=== PATIENT | female | born 1940 | race Caucasian/White ===

== ENCOUNTER → 2024-03-09 08:06 | Outpatient (REF) | payer MEDICARE, OTHER, SELFPAY | LOC: RCS 08:06 | PROVIDERS: ATTENDING PHYSICIAN Internal Medicine Cardiovascular Disease; FAMILY PHYSICIAN Family Medicine | DX: I48.0 Paroxysmal atrial fibrillation (principal); I34.0 Nonrheumatic mitral (valve) insufficiency | CPT/HCPCS: 93306 ==

== ENCOUNTER 2024-05-04 15:42 | Inpatient (IN) | payer MEDICARE, OTHER, SELFPAY ==
[2024-05-04] VITALS (8 sets, daily range): BP systolic 115–155; BP diastolic 70–105
[2024-05-04 10:50] LABS: % Basophils 0.3 % (0-2); % Eosinophils 1.3 % (0-6); % Immature Granulocytes 0.3 % (0-0.5); % Lymphocytes 9.7 % (20.5-51.1); % Neutrophils 75.4 % (42.2-75.2); Absolute Eosinophils 0.1 10^3/uL (0-0.7); Absolute Lymphocytes 0.9 10^3/uL (1.2-3.4); Absolute Monocytes 1.1 10^3/uL (0.1-0.6); Absolute Neutrophils 6.6 10^3/uL (1.4-6.5); Hematocrit 32.9 % (37.0-47.0); Hemoglobin 11.4 g/dL (12.0-16.0); Mean Corp Hgb Conc. 34.7 g/dL (33.0-37.0); Mean Corpuscular Hgb 29.4 pg (27.0-31.0); Mean Corpuscular Volume 84.8 fL (81.0-99.0); Mean Platelet Volume 9.1 fL (7.4-10.4); Nucleated Red Blood Cells % 0 %; Platelet Count 237 10^3/uL (130-400); Red Blood Cell Count 3.88 10^6/uL (4.20-5.40); Red Cell Dist. Width 13.7 % (11.5-14.5); White Blood Cell Count 8.8 10^3/uL (4.8-10.8)
[2024-05-04 10:59] LABS: ALT (SGPT) 14 U/L (0-35); AST (SGOT) 25 U/L (14-36); Albumin 4.1 g/dl (3.5-5.0); Alkaline Phosphatase 71 U/L (38-126); Blood Urea Nitrogen 21 mg/dl (7-17); Calcium 9.3 mg/dl (8.4-10.2); Carbon Dioxide 27 mmol/L (22-30); Chloride 98 mmol/L (98-107); Glucose 104 mg/dl (70-99); Potassium 4.2 mmol/L (3.5-5.1); Sodium 132 mmol/L (135-145); Total Bilirubin 0.5 mg/dl (0.2-1.3); Total Protein 6.8 g/dl (6.3-8.2)
[2024-05-04] MEDS: ANCEF 10 IV (12:22)
[2024-05-04] MEDS: MORPHINE SULFATE 2 MG IV (13:18)
--- NOTE | 2024-05-04 14:27 | ED.GENMED ---
History of Present Illness
General
Chief Complaint: Skin Problem
Source: patient
Exam Limitations: none
Time Seen by Provider: 05/04/24 10:16
Nursing documentation reviewed up to this point in time: agreed with
History of Present Illness
History of Present Illness:
83-year-old female past medical history of A-fib currently on Eliquis, hypertension hyperlipidemia presenting to the emergency department today with concerns of worsening swelling and to the right lower extremity mainly on the right foot going to
the posterior ankle and to the lower tib-fib region. Has had subjective fevers denies any nausea vomiting. She has been on antibiotics for the past 3 days without improvement.
Past History
Past History
ED Past Medical History: Arrthythmia, HTN, Hypercholesterolemia, Hypothyroidism, Other (Cellulitis RLE (2006)) and Other (Osteoarthritis)
ED Past Surgical History: Cholecystectomy, Orthopedic (Right wrist surgery) and Other (Laser ablation of right greater saphenous vein)
Social History
Tobacco: Former smoker
Alcohol: None
Drug: None
Personal:
Living: with family
Family History
Family History: Hypertension and CAD; Negative Diabetes
Review of Systems
Review of Systems
Allergies reviewed?: Yes
All Other Systems: ROS reviewed and negative except as documented in HPI and ROS
Phy Exam
Physical Exam
Physical Exam:
GENERAL: Alert , in no apparent distress
EYE: pupils equal and reactive
NECK: Supple, no significant adenopathy.
ENT: o/p clr, mmm.
CARDIAC: Regular rate and rhythm .
LUNGS: Clear breath sounds bilaterally, no acute respiratory distress, no wheezes/rales/rhonchi
ABDOMEN: Soft, without focal tenderness, no r/g, no cvat
NEUROLOGICAL: Alert and oriented, no focal neuro deficits
SKIN: Warm and dry, skin intact.
MUSCULOSKELETAL: Swelling redness discomfort throughout the right ankle foot region extending into the martinez region as well. Is able to range at the ankle does have some discomfort specifically to your Achilles region as well., well perfused.
PSYCH: Normal and appropriate interaction.
Course
Orders/Labs/Results
Orders:
Orders
05/04/24 10:37
CMP [Comprehensive Metabolic Panel] Urgent
Complete Blood Count/With Diff Urgent
05/04/24 11:02
CeFAZolin 2 GRAM [Ancef] 2 grams in 10 ml IV NOW
05/04/24 11:23
Lactic Acid Urgent
Blood Culture Urgent
MOLLY Source: Blood/Venous
Specimen Description:
05/04/24 11:25
Ankle, Right 3 view CR [CR Ankle - Right Min 3 Views *] Urgent
Comment:
Reason For Exam: ankle pain swelling
CR Foot - Right Min 3 Views Urgent
Comment:
Reason For Exam: swelling pain infection right ankle area
05/04/24 12:19
Sterile Water [Sterile Water For Injection] 10 ml .ROUTE .STK-MED ONE
05/04/24 13:14
Morphine Sulfate 2 mg IV NOW STA
Abnormal Lab Results
05/04/24
10:37
RBC 3.88 L 10^6/uL
(4.20-5.40)
Hgb 11.4 L g/dL
(12.0-16.0)
Hct 32.9 L %
(37.0-47.0)
Absolute Neuts (auto) 6.6 H 10^3/uL
(1.4-6.5)
Absolute Lymphs (auto) 0.9 L 10^3/uL
(1.2-3.4)
Absolute Monos (auto) 1.1 H 10^3/uL
(0.1-0.6)
Neutrophils % 75.4 H %
(42.2-75.2)
Lymphocytes % 9.7 L %
(20.5-51.1)
Monocytes % 13.0 H %
(1.7-9.3)
Sodium 132 L mmol/L
(135-145)
BUN 21 H mg/dl
(7-17)
Glucose 104 H mg/dl
(70-99)
05/04/24 10:37
05/04/24 10:37
Vital Signs
Initial and Last Documented VS:
Initial Vital Signs
Temp Pulse Resp
98.6 F 79 20
05/04/24 09:40 05/04/24 09:40 05/04/24 09:40
Last Documented Vital Signs
Temp Pulse Resp BP Pulse Ox
98.6 F 85 20 155/73 95
05/04/24 09:40 05/04/24 13:17 05/04/24 13:17 05/04/24 13:00 05/04/24 11:01
MDM/Problems Addressed
MDM/Problems Addressed:
83-year-old female presenting to the emergency department today with concerns of right lower extremity swelling redness warmth mainly starting as seemingly superficial redness and swelling started on antibiotics 3 days ago has not had any
improvement and has had subjective fevers and chills. Here vital signs are normal patient in no distress but does have redness swelling and tenderness throughout the ankle foot and distal martinez region. Patient was started on IV antibiotics and
otherwise will need to be admitted due to failed outpatient management.
*Critical Care Note
Total Time (30-74mins, 75-104mins- exclusive of procedures): Not Applicable
ED Attending Note
-
Portions of this chart may have been created with voice recognition software.� Occasional wrong word or��sound alike� substitutions may have occurred due to the inherent limitations of voice recognition software.
Discharge Plan
Departure
Patient Disposition: Admit
Date of Disposition: 05/04/24
Time of Disposition: 14:29
Admit to: Med/Surg
Admit to doctor: Leg cellulitis
Presentation/result/management discussed w/ accepting MD/DO: Hospitalist
Patient with high blood pressure during this ER visit?: No
Condition: Good
Covid-19: Not Applicable
Discharge Problem:
Cellulitis of leg
Prescriptions:
No Action
oxybutynin chloride 10 MG tablet extended release 24hr
10 mg PO DAILY@1700
levothyroxine 125 MCG tablet
125 mcg PO DAILY AT 0700
lovastatin 20 MG tablet
20 mg PO DAILY
PreserVision AREDS-2 1 EACH capsule
1 ea PO BID
multivitamin Tablet
1 tab PO DAILY
hydrocodone-acetaminophen 5-325 mg tablet
1 tab PO Q6H PRN (Reason: moderate-severe pain) Qty: 30 0RF
Rx Instructions:
1 tab for moderate pain, 2 if severe.
Dx total joint. Ongoing therapy.
mupirocin 2 % ointment
1 applic intranasal BID Qty: 1 0RF
prochlorperazine maleate [Compazine] 5 mg tablet
5 mg PO TID PRN (Reason: nausea and vomiting) Qty: 20 0RF
diltiazem HCl 180 MG capsule,extended release 24hr
360 mg PO QPM
Rx Instructions:
take 2 of the 180 mg capsules daily
acetaminophen [Tylenol] 325 mg tablet
650 mg PO Q4H PRN (Reason: mild pain) Qty: 30 0RF
Rx Instructions:
DO NOT exceed >4000 mg daily while on [place].
1 [place] tab = 325 mg of Tylenol.
docusate sodium [Colace] 100 mg capsule
100 mg PO BID Qty: 30 0RF
senna 8.6 mg capsule
17.2 mg PO BID Qty: 30 0RF
penicillin V potassium 500 MG tablet
500 mg PO DAILY Qty: 1 0RF
Rx Instructions:
Resume day after discharge.
alum-mag hydroxide-simeth [Mag-Al Plus] 200-200-20 mg/5 mL Suspension
30 ml PO Q4HPRN PRN (Reason: indigestion) Qty: 355 0RF
losartan 100 MG tablet
100 mg PO DAILY Qty: 1 0RF
Rx Instructions:
HOLD if systolic blood pressure <130 while on [place].
Eliquis 5 MG tablet
5 mg PO BID Qty: 60 0RF
Rx Instructions:
1/2 tab (=2.5 mg) twice daily starting evening of discharge.
May resume 5 mg twice daily on 07/28/22 AM.
Referrals:
Viktoriya Underwood MD [Family Provider] -
Interventions
Interventions:
*Risk Screen - Suicide Last Done: 05/04/24 09:40
*General Assessment Last Done: 05/04/24 09:40
*Neglect/Abuse Screening Last Done: 05/04/24 09:40
ED- Fall Risk Assessment Last Done: 05/04/24 10:26
*ED COVID-19 Vaccine History Last Done: 05/04/24 10:26
ED-Skin Assessment Last Done: 05/04/24 10:26
Discharge Date and Time
Print Language: AFGHAN
--- NOTE | 2024-05-04 14:43 | HPS.HSE ---
Family Physician
-
Family Physician: Viktoriya Underwood
Chief Complaint
-
RLE ankle redness
History of Present Illness
83 y/o F hx of Afib on Eliquis, HTN, HLD, Hypothyroidism, prior recurrent cellulitis to legs on prophylactic penicillin presents to ER for worsening RLE ankle/foot swelling. Patient reports recurrent cellulitis history managed by PCP. She presented
a few days ago to PCP for cellulitis and was prescribed Cefadroxil which patient states usually helps with her infections. She notes that in the interim period since PCP visit, her swelling has worsened and is redness is tracking up the martinez. She
also reports limited ROM of R ankle related to swelling. No fevers or other complaints.
Medical History
Past Medical History
Past Medical History: Reports Other (Afib on Eliquis, HTN, HLD, Hypothyroidism, prior recurrent cellulitis to legs on prophylactic penicillin)
Past Surgical History: Reports Other (Cholecystectomy, Orthopedic (Right wrist surgery) and Other (Laser ablation of right greater saphenous vein))
Social History
Tobacco: Former Smoker
Alcohol: None
Drug: None
Personal:
Living: With Family
Family History
Family History: Not pertinent
Allergies / Home Medications
Allergies reflects when Allergies were last updated in [facility].
Home Medications with original date entered in [facility]
Allergy/Medication List:
Allergies
Allergy/AdvReac Type Severity Reaction Status Date / Time
adhesive Allergy skin tears Verified 05/04/24 09:44
cefadroxil Allergy hives, Verified 05/04/24 09:44
rash,
itching
Sulfa (Sulfonamide Allergy Rash Verified 05/04/24 09:44
Antibiotics)
trimethoprim Allergy Unknown Verified 05/04/24 09:44
vancomycin [Vancomycin] Allergy Hives Verified 05/04/24 09:44
Home Medications
levothyroxine 125 mcg tablet 125 mcg PO DAILY AT 0700 Thyroid 03/27/22
vit C 250 mg-vit E 90 mg-zinc 40 mg-copper 1 [id number] capsule (PreserVision AREDS-2) 1 ea PO BID Supplement 03/27/22
penicillin V potassium 500 mg tablet 500 mg PO DAILY prophylaxis for cellulitis #1 tab 07/25/22
apixaban 5 mg tablet (Eliquis) 5 mg PO BID #60 tabs 07/26/22
losartan 100 mg tablet 100 mg PO DAILY #1 tab 07/26/22
acetaminophen 650 mg tablet,extended release 650 mg PO DAILY 05/04/24
cefadroxil 500 mg capsule 500 mg PO BID 05/04/24
diltiazem HCl 360 mg capsule,extended release 24 hr 360 mg PO QPM 05/04/24
lovastatin 20 mg tablet 20 mg PO DAILY 05/04/24
therapeutic multivitamin 1 tab PO DAILY 05/04/24
Review of Systems
-
A 12 point ROS was completed and negative except as noted: Yes
Physical Exam
Vital Signs
Vital Signs
Temp Pulse Resp BP Pulse Ox
98.6 F 85 20 155/73 95
05/04/24 09:40 05/04/24 13:17 05/04/24 13:17 05/04/24 13:00 05/04/24 11:01
Physical Exam
General: Well Developed and Well Nourished
HEENT: NormoCephalic and Anicteric
Respiratory: No Wheezes or Rales
Cardiac: S1/S2 and Regular Rhythm
GI: Soft and Non Tender
Musculoskeletal: Edema, Right Lower Extremity and Other
Skin: Other (RLE cellulitis, warmth from mid foot to R martinez, ankle swelling)
Neuro: AO x 3
Hematologic/Lymphatic: No Lymphadenopathy
Psych: Calm
Laboratory Results
-
05/04/24 10:37
05/04/24 10:37
Laboratory Results
Lactic Acid 1.0 mmol/L (0.7-2.0) 05/04/24 11:23
Total Bilirubin 0.5 mg/dl (0.2-1.3) 05/04/24 10:37
AST 25 U/L (14-36) 05/04/24 10:37
ALT 14 U/L (0-35) 05/04/24 10:37
Alkaline Phosphatase 71 U/L (38-126) 05/04/24 10:37
Data Reviewed
-
Diagnostic Radiology: Report Reviewed by me
Lab Data: Labs Reviewed by me
Impression/Plan
-
Assessment:
RLE cellulitis, recurrent
- on prophylactic PCN and recently prescribed Cefadroxil for acute cellulitis episode; no improvement
- XRay without acute pathology
- will start IV Abx - Ancef and Vanco. Check MRSA swab.
- consult ID for recs
- elevated RLE at all times
Afib , parox
Essential HTN
- continue Eliquis/Cardizem
- continue ARB
HLD - continue statin
Hypothyroidism - continue replacement
Hyponatremia
- monitor BMP
DVT ppx: Eliquis
Code: Full
--- NOTE | 2024-05-04 16:56 | PTCARENOTE ---
Pt arrived to unit from ED on stretcher. Pt ambulated safely from stretcher to bed with the use of her cane. Pt AAOx3, oriented to room, able to make needs known. Call delacruz and belongings within reach.
[2024-05-04] MEDS: CARDIZEM CD 360 MG PO (17:25)
[2024-05-04] MEDS: TYLENOL 650 MG PO ×2 (17:27→21:57)
--- NOTE | 2024-05-04 17:54 | PHA.VAN.IN ---
Assessment
- Assessment
Renal Function: Appears similar to baseline
Concomitant Antimicrobials: ANCEF
- Previous Dosing Experience
Previous Regimen: NONE
AUC Dosing Plan
- Dosing Variables
Dosing Weight (kg): 64.7
Dosing CrCl (ml/min): 40
Vd coefficient (L/kg): 0.7
- Empiric Dosing
Initial / Loading Dose: 1500MG
Maintenance Regimen: 750MG IV Q24H
Estimated AUC (mcg*h/mL): 449
Estimated Peak (mcg*h/mL): 27.9
Estimated Trough (mcg/ml): 11.7
Estimated Half Life (H): 18.4
Pharmacokinetics Vancomycin I
- -
Patient Age: 83
Patient Sex: Female
Vancomycin Day #: 1
Indication: Skin And Soft Tissue (RLE CELLULITIS)
Requesting Provider: CORBY
Pertinent Antimicrobial Allergies:
Allergies
Sulfa (Sulfonamide Antibiotics) Allergy (Verified 05/04/24 09:44)
Rash
Remote, in childhood
cefadroxil Allergy (Verified 05/04/24 09:44)
hives, rash, itching
1 month ago
trimethoprim Allergy (Verified 05/04/24 09:44)
Unknown
vancomycin [Vancomycin] Allergy (Verified 05/04/24 09:44)
Hives
10 y/a
Height / Weight:
Height 5 ft 5 in
Actual Weight 64.7 kg
Pertinent Past Medical History: FAILED OUTPT TX WITH CEFADROXIL
- Vital Signs / Lab Results
Temp Pulse Resp BP Pulse Ox
101.4 F H 81 17 146/94 95
05/04/24 17:09 05/04/24 17:25 05/04/24 17:09 05/04/24 17:25 05/04/24 17:09
Lab Results - Hematology
05/04/24
10:37
WBC 8.8
Lab Results - Chemistry
05/04/24
10:37
BUN 21 H
Creatinine 1.0
Albumin 4.1
05/04/24
11:23
Lactic Acid 1.0
[2024-05-04] MEDS: ANCEF 5 IV (20:11)
[2024-05-04] MEDS: ELIQUIS 5 MG PO (20:11)
[2024-05-05] MEDS: ANCEF 5 IV ×3 (03:54→20:54)
[2024-05-05] MEDS: SYNTHROID 125 MCG PO (05:43)
[2024-05-05 06:11] LABS: Hematocrit 31.7 % (37.0-47.0); Hemoglobin 10.8 g/dL (12.0-16.0); Mean Corp Hgb Conc. 34.1 g/dL (33.0-37.0); Mean Corpuscular Hgb 29.4 pg (27.0-31.0); Mean Corpuscular Volume 86.4 fL (81.0-99.0); Mean Platelet Volume 9.6 fL (7.4-10.4); Platelet Count 244 10^3/uL (130-400); Red Blood Cell Count 3.67 10^6/uL (4.20-5.40); Red Cell Dist. Width 13.5 % (11.5-14.5); White Blood Cell Count 6.6 10^3/uL (4.8-10.8)
[2024-05-05 06:29] LABS: Blood Urea Nitrogen 16 mg/dl (7-17); Calcium 9.3 mg/dl (8.4-10.2); Carbon Dioxide 31 mmol/L (22-30); Chloride 99 mmol/L (98-107); Estimated Creatinine Clearance 44 ml/min; Glucose 98 mg/dl (70-99); Potassium 4.2 mmol/L (3.5-5.1); Sodium 134 mmol/L (135-145); eGFR > 60.00
[2024-05-05 07:15] VITALS: BP 136/91
[2024-05-05] MEDS: ELIQUIS 5 MG PO ×2 (08:29→20:54)
[2024-05-05] MEDS: LIPITOR 10 MG PO (08:29)
[2024-05-05] MEDS: COZAAR 100 MG PO (08:30)
[2024-05-05] MEDS: THERAGRAN 1 TABLET PO (08:30)
[2024-05-05] MEDS: TYLENOL 650 MG PO ×2 (08:35→14:58)
[2024-05-05 09:20] VITALS: BP 113/76; PULSE 95; O2SAT 94
--- NOTE | 2024-05-05 11:37 | W.PN.HOSP.TC ---
Today's Communication/Plan
-
await ID recs
Assessment / Plan
Assessment / Plan
Assessment:
RLE cellulitis, recurrent
- on prophylactic PCN and recently prescribed Cefadroxil for acute cellulitis episode; no improvement
- X-ray without acute pathology
- continue IV Ancef. Check MRSA swab.
- consulted ID for co-management recs
- elevate RLE at all times
Afib , parox
Essential HTN
- continue Eliquis/Cardizem
- continue ARB
HLD - continue statin
Hypothyroidism - continue replacement
Hyponatremia
- monitor BMP
DVT ppx: Eliquis
Code: Full
Anticipated Discharge: > 48 hours
Subjective/Interval History
-
Date of Service: May 05, 2024
reports RLE ankle swelling improving, able to ambulate more easily
Objective Data
-
Labs:
Laboratory Results
05/05/24
05:15
WBC 6.6
Hgb 10.8 L
Hct 31.7 L
Plt Count 244
Sodium 134 L
Potassium 4.2
Chloride 99
Carbon Dioxide 31 H
BUN 16
Creatinine 0.9
Glucose 98
Calcium 9.3
Vital Signs:
Vital Signs
Temp Pulse Resp BP Pulse Ox
98.8 F 97 17 136/91 95
05/05/24 07:15 05/05/24 08:30 05/05/24 07:15 05/05/24 08:30 05/05/24 09:53
I&O
05/04/24 05/05/24 05/06/24
06:59 06:59 06:59
Intake Total 960 / 960
Balance 960 / 960
Physical Exam
-
General: No Apparent Distress
HEENT: Normocephalic and Atraumatic
Respiratory: Negative Wheezes
Cardiac: Regular Rhythm and S1/S2
GI: Soft
Skin: Other ((RLE cellulitis, warmth from mid foot to R martinez, ankle swelling))
Neuro: AO x 3
Hematologic / Lymphatic: No Lymphadenopathy
Psych: Calm
Data Reviewed
-
Total Time Spent with Patient (in minutes): 45
Labs: Labs Reviewed by me
--- NOTE | 2024-05-05 12:08 | CM ---
wastewater manager reviewed patient's chart and met with patient and patient lives alone in a one story home, with 13 steps to enter from the front of home and 12 steps from the garage, patient is independent with adl's and uses a cane with ambulation,
rn field case manager reviewed patient progress with physial therapy and recommendation is for skilled placement, patient is refusing skilled placement but is agreeable to visiting nurses, and has selected [facility], [facility] liaison notified.
Pharmacy: [facility]
PCP: Dr. Underwood
Plan: Home with [facility].
--- NOTE | 2024-05-05 13:54 | CON.ID ---
Consultation
-
Date/Time Consultation Requested: May 04, 2024 1622
Date/Time Consultation Performed: May 05, 2024 1400
Requesting Provider: Dr. Cintia Boyd
Performing Provider: Dr. Ethel Rodriguez
Reason for Consultation: Cellulitis
Chief Complaint / Past History
Chief Complaint
Right leg swelling and redness
History of Present Illness
83-year-old female with history of atrial fibrillation, hypertension, hypothyroidism, right leg cellulitis and has been on prophylactic penicillin since 2006 who developed redness on right Achilles on . Her PCP prescribed cefadroxil but
without improvement this time with spreading erythema up the leg. She also had subjective fevers and chills. She therefore came to the ER yesterday. Temperature was one 101.4. She received vancomycin in the ER. She was started on cefazolin. She
reports right leg cellulitis every 7 years, but this one is 2 years from previous. Redness always starts on the Achilles then spread up the leg. Today, leg is not as warm as previous. Also chills has resolved.
Past History
Additional Past Medical History:
HTN
hypothyroidism
Afib
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
Venous insufficiency
cholecystectomy
R GSV laser ablation
Left LE vein ablation
Right wrist surgery
Allergy History:
adhesive Allergy (Verified 05/04/24 09:44)
skin tears
cefadroxil Allergy (Verified 05/04/24 09:44)
hives, rash, itching
Sulfa (Sulfonamide Antibiotics) Allergy (Verified 05/04/24 09:44)
Rash
trimethoprim Allergy (Verified 05/04/24 09:44)
Unknown
vancomycin [Vancomycin] Allergy (Verified 05/04/24 09:44)
Hives
Medications Reviewed: Yes
Current Antibiotics:
Cefazolin
Social History
Tobacco: Former Smoker
Alcohol: None
Drug: None
Personal:
Family History
Family History: Not Pertinent
Review of Systems
Review of Systems
General: Fever and Chills
Cardiovascular: Negative Chest Pain or Dyspnea
Respiratory: Negative Dyspnea or Cough
Genital / Urological: Negative Dysuria or Flank Pain
Neurological: Negative Headache or Dizziness
All systems: All other systems were reviewed and were negative
Vital Signs
Temp Pulse Resp BP Pulse Ox
98.8 F 97 17 136/91 95
05/05/24 07:15 05/05/24 08:30 05/05/24 07:15 05/05/24 08:30 05/05/24 09:53
Selected Entries
05/04/24
17:09
Temp 101.4 F H
Physical Exam
Physical Exam
Constitutional: No Acute Distress
Eyes: No Conjunctival Hemorrhage and Sclera Anicteric
Cardiovascular: Regular Rate and S1/S2
Pulmonary: Clear
Gastrointestinal: Soft, Non Tender, Non Distended and Normal Bowel Sounds
Genito-Urinary: Negative CVA Tenderness
Extremities: Edema (right posterior ankle with erythema extending to lateral malleolus and up the martinez, 1+ edema, + warmth) and Venous Insufficiency (bilateral LE)
Neurological: AO x 3
Lab / Diagnostic Study Results
05/05/24 05:15
05/05/24 05:15
Abs Immat Gran (auto) 0.0 10^3/uL (0-0.05) 05/04/24 10:37
Absolute Neuts (auto) 6.6 10^3/uL (1.4-6.5) H 05/04/24 10:37
Absolute Lymphs (auto) 0.9 10^3/uL (1.2-3.4) L 05/04/24 10:37
Absolute Monos (auto) 1.1 10^3/uL (0.1-0.6) H 05/04/24 10:37
Absolute Basos (auto) 0.0 10^3/uL (0-0.2) 05/04/24 10:37
Immature Gran % 0.3 % (0-0.5) 05/04/24 10:37
Neutrophils % 75.4 % (42.2-75.2) H 05/04/24 10:37
Lymphocytes % 9.7 % (20.5-51.1) L 05/04/24 10:37
Monocytes % 13.0 % (1.7-9.3) H 05/04/24 10:37
Eosinophils % 1.3 % (0-6) 05/04/24 10:37
Basophils % 0.3 % (0-2) 05/04/24 10:37
Lactic Acid 1.0 mmol/L (0.7-2.0) 05/04/24 11:23
Microbiology Results
Micro:
05/04/24 11:23 Blood Culture - Preliminary
Blood/Venous No Growth in 24 hours- Final report to follow
05/04/24 20:30 MRSA Screen - Pending
Nose
Assessment / Plan
# Recurrent RLE cellulitis
# Fever
# Venous insufficiency
- Agree with continuing cefazolin
- follow temps.
- Will follow clinically
--- NOTE | 2024-05-05 14:31 | VNURNOTE ---
Home Health Liaison met with patient at bedside to discuss [facility] nurse visits, schedule and homebound status. Patient is agreeable and understands that visits at home will be 1-3 x per week to assess and teach medical management. Explained to
patient that caveat is if patient goes home with IV antibiotics, [facility] would not be able to see her due to insurance restrictions. Patient verbalized understanding. LAURA Aquino aware as well. [facility] brochure provided with contact information. Patient is
aware that [facility] will contact them for start of care within a few days after discharge from . [facility] referral completed in [facility]. Will continue to monitor hospital course and DC plan for antibiotics.
[2024-05-05 15:30] VITALS: BP 129/76
[2024-05-05] MEDS: CARDIZEM CD 360 MG PO (17:43)
[2024-05-05 23:08] VITALS: BP 125/78
[2024-05-06] MEDS: SYNTHROID 125 MCG PO (04:59)
[2024-05-06] MEDS: ANCEF 5 IV ×3 (04:59→21:04)
[2024-05-06 05:31] LABS: Hematocrit 30.5 % (37.0-47.0); Hemoglobin 10.6 g/dL (12.0-16.0); Mean Corp Hgb Conc. 34.8 g/dL (33.0-37.0); Mean Corpuscular Hgb 29.6 pg (27.0-31.0); Mean Corpuscular Volume 85.2 fL (81.0-99.0); Platelet Count 259 10^3/uL (130-400); Red Blood Cell Count 3.58 10^6/uL (4.20-5.40); Red Cell Dist. Width 13.2 % (11.5-14.5); White Blood Cell Count 7.1 10^3/uL (4.8-10.8)
[2024-05-06 05:58] LABS: Blood Urea Nitrogen 18 mg/dl (7-17); Calcium 9.1 mg/dl (8.4-10.2); Carbon Dioxide 27 mmol/L (22-30); Chloride 99 mmol/L (98-107); Estimated Creatinine Clearance 50 ml/min; Glucose 102 mg/dl (70-99); Sodium 131 mmol/L (135-145); eGFR > 60.00
[2024-05-06] MEDS: COZAAR 100 MG PO (08:47)
[2024-05-06] MEDS: ELIQUIS 5 MG PO ×2 (08:47→21:05)
[2024-05-06] MEDS: LIPITOR 10 MG PO (08:48)
[2024-05-06] MEDS: THERAGRAN 1 TABLET PO (08:48)
--- NOTE | 2024-05-06 10:43 | PN.CDI ---
CDI
- -
CDI:
Physician Documentation Request
Admit Date: 05/04/24 15:42
Dear Doctor Deb,
Please review the following and provide your response in the progress notes.
Clinical Indicators:
Pt admitted with RLE cellulitis Documented per ED, 'Has had subjective fevers denies any nausea vomiting. She has been on antibiotics for the past 3 days without improvement.... has had subjective fevers and chills...'
On admission Tmax 101.4,HR 112,RR 24 /pt is on Ancef and Vanco
Please clarify which of the following most accurately describes the status of the patient's infection:
Sepsis-POA
- Systemic manifestations of infection, with 2 or more SIRS criteria which include:
- Fever >100.4 degrees F or hypothermia < 96.8 degrees F
- Leukocytosis - WBC > 12,000 or leukopenia - WBC < 4,000 or > 10% bands
- Tachycardia > 90 beats per minute
- Tachypnea - RR > 20 breaths per minute or PaCO2 , 32mmHg
Source: Merck Manual 2013
Right Lower extremity cellulitis only Without Systemic Illness
Other
Use of terms such as suspected, likely, concern for, or probable (associated with a specific diagnosis that is being evaluated, monitored, or treated as if it exists) are acceptable and can be coded in the inpatient setting, when documented at the
time of discharge.
Thank you,
Yen Garnica RN
CDI Specialist
[place] [facility]
Please use your independent medical judgment in providing your response.
[2024-05-06] MEDS: TYLENOL 650 MG PO ×2 (11:41→21:11)
--- NOTE | 2024-05-06 13:25 | W.PN.HOSP.TC ---
Today's Communication/Plan
-
continue IV Ancef and elevate LE
Assessment / Plan
Assessment / Plan
Assessment:
Sepsis POA
RLE cellulitis, recurrent
- on prophylactic PCN and recently prescribed Cefadroxil for acute cellulitis episode; no improvement
- X-ray without acute pathology
- continue IV Ancef. MRSA negative.
- ID following
- elevate RLE at all times
Afib , parox
Essential HTN
- continue Eliquis/Cardizem
- continue ARB
HLD - continue statin
Hypothyroidism - continue replacement
Hyponatremia
- monitor BMP
DVT ppx: Eliquis
Code: Full
Anticipated Discharge: 24 - 48 hours
Subjective/Interval History
-
Date of Service: May 06, 2024
reports improving mobility, and slightly improving swelling
Objective Data
-
Labs:
Laboratory Results
05/06/24
05:15
WBC 7.1
Hgb 10.6 L
Hct 30.5 L
Plt Count 259
Sodium 131 L
Potassium 4.0
Chloride 99
Carbon Dioxide 27
BUN 18 H
Creatinine 0.8
Glucose 102 H
Calcium 9.1
Vital Signs:
Vital Signs
Temp Pulse Resp BP Pulse Ox
98.1 F 85 16 125/78 95
05/06/24 03:33 05/06/24 08:47 05/05/24 23:08 05/06/24 08:47 05/06/24 09:58
I&O
05/05/24 05/06/24 05/07/24
06:59 06:59 06:59
Intake Total 960 / 960 1050 / 1050
Balance 960 / 960 1050 / 1050
Physical Exam
-
General: No Apparent Distress
HEENT: Normocephalic and Atraumatic
Respiratory: Negative Wheezes or Rales
Cardiac: Regular Rhythm and S1/S2
GI: Soft
Genito-urinary: No Costovertebral Tender
Musculoskeletal: Other (RLE cellulitis, warmth from mid foot to R martinez, ankle swelling)
Neuro: AO x 3
Hematologic / Lymphatic: No Lymphadenopathy
Psych: Calm
Data Reviewed
-
Total Time Spent with Patient (in minutes): 42
Labs: Labs Reviewed by me
--- NOTE | 2024-05-06 14:34 | W.PN.ID1 ---
Date of Service
Date of Service: May 06, 2024
Today's Communication
Continue cefazolin.
Assessment / Plan
# Recurrent RLE cellulitis, slowing improving
# Fever - resolved
# Venous insufficiency
- Continue cefazolin (d3)
- At time of discharge, transition to cephalexin 500mg po qid through 05/13/2024
- Recommend compression stockings.
#Additional Past Medical History:
HTN
hypothyroidism
Afib
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
Venous insufficiency
cholecystectomy
R GSV laser ablation
Left LE vein ablation
Right wrist surgery
Chief Complaint
-: Cellulitis
Subjective / Review of Systems
Ankle pain stable.
Vital Signs / Physical Exam
Vital Signs
Vital Signs
Temp Pulse Resp BP Pulse Ox
98.1 F 85 16 125/78 95
05/06/24 03:33 05/06/24 08:47 05/05/24 23:08 05/06/24 08:47 05/06/24 09:58
Physical Exam
Constitutional: No Acute Distress
Extremities: Edema (RLE edema continues to decrease) and Erythema (R Achilles erythema decreased, R lateral ankle erythema darker in color, + warmth)
Neurological: AO x 3
Objective Data
Lab Data
Lab Results
05/06/24 05:15
05/06/24 05:15
Estimated Creat Clear 50 ml/min 05/06/24 05:15
Lactic Acid 1.0 mmol/L (0.7-2.0) 05/04/24 11:23
Total Bilirubin 0.5 mg/dl (0.2-1.3) 05/04/24 10:37
AST 25 U/L (14-36) 05/04/24 10:37
ALT 14 U/L (0-35) 05/04/24 10:37
Alkaline Phosphatase 71 U/L (38-126) 05/04/24 10:37
Most recent labs reviewed.
Micro Results:
05/04/24 11:23 Blood Culture - Preliminary
Blood/Venous No Growth in 48 hours- Final report to follow
05/04/24 20:30 MRSA Screen - Final
Nose No Methicillin Resistant Staphylococcus aureus isolated.
[2024-05-06 16:20] VITALS: BP 110/67
[2024-05-06] MEDS: CARDIZEM CD 360 MG PO (17:01)
[2024-05-06 23:23] VITALS: BP 124/71
[2024-05-07] MEDS: ANCEF 5 IV ×2 (04:13→12:17)
[2024-05-07] MEDS: TYLENOL 650 MG PO ×2 (04:19→10:01)
[2024-05-07] MEDS: SYNTHROID 125 MCG PO (05:42)
[2024-05-07 06:21] LABS: Hematocrit 27.7 % (37.0-47.0); Hemoglobin 9.6 g/dL (12.0-16.0); Mean Corp Hgb Conc. 34.7 g/dL (33.0-37.0); Mean Corpuscular Hgb 28.9 pg (27.0-31.0); Mean Corpuscular Volume 83.4 fL (81.0-99.0); Mean Platelet Volume 9.3 fL (7.4-10.4); Platelet Count 283 10^3/uL (130-400); Red Blood Cell Count 3.32 10^6/uL (4.20-5.40); Red Cell Dist. Width 13.4 % (11.5-14.5); White Blood Cell Count 7.2 10^3/uL (4.8-10.8)
[2024-05-07 06:46] LABS: Blood Urea Nitrogen 23 mg/dl (7-17); Calcium 9.3 mg/dl (8.4-10.2); Carbon Dioxide 27 mmol/L (22-30); Chloride 99 mmol/L (98-107); Estimated Creatinine Clearance 44 ml/min; Glucose 96 mg/dl (70-99); Potassium 3.9 mmol/L (3.5-5.1); Sodium 132 mmol/L (135-145); eGFR > 60.00
[2024-05-07 07:00] VITALS: BP 128/72
--- NOTE | 2024-05-07 09:55 | W.PN.ID1 ---
Date of Service
Date of Service: May 07, 2024
Today's Communication
Transition cefazolin to cephalexin 500mg po qid through 05/17/2024
Assessment / Plan
# Recurrent RLE cellulitis, improving
# Fever - resolved
# Venous insufficiency
- Continue cefazolin (d3)
- Transition cefazolin to cephalexin 500mg po qid through 05/17/2024
- Recommend compression stockings.
#Additional Past Medical History:
HTN
hypothyroidism
Afib
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
Venous insufficiency
cholecystectomy
R GSV laser ablation
Left LE vein ablation
Right wrist surgery
Chief Complaint
-: Cellulitis
Subjective / Review of Systems
Feeling better.
Vital Signs / Physical Exam
Vital Signs
Vital Signs
Temp Pulse Resp BP Pulse Ox
98.4 F 70 16 128/72 97
05/07/24 07:00 05/07/24 07:00 05/07/24 07:00 05/07/24 07:00 05/07/24 07:00
Physical Exam
Constitutional: No Acute Distress and Comfortable
Extremities: Edema (RLE resolving edema) and Erythema (R ankle erythema decreasing)
Neurological: AO x 3
Objective Data
Lab Data
Lab Results
05/07/24 05:04
05/07/24 05:04
Estimated Creat Clear 44 ml/min 05/07/24 05:04
Lactic Acid 1.0 mmol/L (0.7-2.0) 05/04/24 11:23
Total Bilirubin 0.5 mg/dl (0.2-1.3) 05/04/24 10:37
AST 25 U/L (14-36) 07/29/24 10:37
ALT 14 U/L (0-35) 05/04/24 10:37
Alkaline Phosphatase 71 U/L (38-126) 05/04/24 10:37
Most recent labs reviewed.
Micro Results:
05/04/24 11:23 Blood Culture - Preliminary
Blood/Venous No Growth in 48 hours- Final report to follow
05/04/24 20:30 MRSA Screen - Final
Nose No Methicillin Resistant Staphylococcus aureus isolated.
Care Review
Plan reviewed with: Physician (Dr. Cintia Boyd)
[2024-05-07] MEDS: COZAAR 100 MG PO (09:57)
[2024-05-07] MEDS: LIPITOR 10 MG PO (09:58)
[2024-05-07] MEDS: THERAGRAN 1 TABLET PO (09:58)
[2024-05-07] MEDS: ELIQUIS 5 MG PO (09:58)
--- NOTE | 2024-05-07 13:51 | W.PN.HOSP.TC ---
Today's Communication/Plan
-
dc to home
Assessment / Plan
Assessment / Plan
Assessment:
Sepsis POA
RLE cellulitis, recurrent
- on prophylactic PCN and recently prescribed Cefadroxil for acute cellulitis episode; no improvement
- X-ray without acute pathology
- improved with IV Ancef. MRSA negative. dc on cephalexin 500mg po qid through 05/17/2024. appreciate ID recs.
- elevate RLE at all times
Afib , parox
Essential HTN
- continue Eliquis/Cardizem
- continue ARB
HLD - continue statin
Hypothyroidism - continue replacement
Hyponatremia
- monitor BMP
DVT ppx: Eliquis
Code: Full
More than 30 minutes spent in discharge including
Final examination of the patient
Summarizing hospital stay
Instructions for continuing care to all relevant caregivers
Preparation of discharge records, prescriptions, and referral forms
Total time spent (in minutes): 41
Anticipated Discharge: Today
Subjective/Interval History
-
Date of Service: May 07, 2024
denies any new complaints at present
Objective Data
-
Labs:
Laboratory Results
05/07/24
05:04
WBC 7.2
Hgb 9.6 L
Hct 27.7 L
Plt Count 283
Sodium 132 L
Potassium 3.9
Chloride 99
Carbon Dioxide 27
BUN 23 H
Creatinine 0.9
Glucose 96
Calcium 9.3
Vital Signs:
Vital Signs
Temp Pulse Resp BP Pulse Ox
98.4 F 70 16 128/72 97
05/07/24 07:00 05/07/24 07:00 05/07/24 07:00 05/07/24 07:00 08/01/24 07:00
I&O
05/06/24 05/07/24 05/08/24
06:59 06:59 06:59
Intake Total 1049 / 0 1859
Balance 1050 / 1049
Physical Exam
-
General: No Apparent Distress
HEENT: Normocephalic and Atraumatic
Respiratory: Negative Wheezes
Cardiac: Regular Rhythm and S1/S2
GI: Soft
Genito-urinary: No Costovertebral Tender
Musculoskeletal: No Edema
Neuro: AO x 3
Psych: Calm
Data Reviewed
-
Total Time Spent with Patient (in minutes): 41
Labs: Labs Reviewed by me
--- NOTE | 2024-05-07 13:56 | W.DS.TRANS ---
DC Summary - [employer]
-
Discharge Instructions:
Discharge Diagnosis/Procedures RLE Cellulitis
Diet Low Cholesterol
Activity As tolerated
Instructions:
Stand-Alone Forms:
Changes to Home Medications: No
Discharge Medications:
DC Medications w/original date entered in [employer]
levothyroxine 125 mcg tablet 125 mcg PO DAILY AT 0700 Thyroid 03/27/22
vit C 250 mg-vit E 90 mg-zinc 40 mg-copper 1 [id number]-[id number] capsule (PreserVision AREDS-2) 1 ea PO BID Supplement 03/27/22
penicillin V potassium 500 mg tablet 500 mg PO DAILY prophylaxis for cellulitis #1 tab 07/25/22
apixaban 5 mg tablet (Eliquis) 5 mg PO BID #60 tabs 07/26/22
losartan 100 mg tablet 100 mg PO DAILY #1 tab 07/26/22
acetaminophen 650 mg tablet,extended release 650 mg PO DAILY Pain 05/04/24
diltiazem HCl 360 mg capsule,extended release 24 hr 360 mg PO QPM Blood Pressure 05/04/24
lovastatin 20 mg tablet 20 mg PO DAILY High Cholesterol 05/04/24
therapeutic multivitamin 1 tab PO DAILY Supplement 05/04/24
cephalexin 500 mg capsule 500 mg PO QID #40 caps 05/07/24
Home Medication Changes
Pending Results: No
Total time spent discharging patient (in min): 41
--- NOTE | 2024-05-07 15:32 | CM ---
met rey patient at bedside.patient with rle cellullitis,abx changed to po,stable for dc home with [facility].signed imm letter.family trnsported patient home.
== END 2024-05-07 14:45 | disposition home health service (06) | DRG 872 ==
LOC: 3 WEST ACU 15:42
PROVIDERS: Physician Assistant; ADMITTING PHYSICIAN Internal Medicine; EMERGENCY PHYSICIAN Emergency Medicine; FAMILY PHYSICIAN Family Medicine; OTHER PHYSICIAN Internal Medicine Infectious Disease
DX: A41.9 Sepsis, unspecified organism (principal); L03.115 Cellulitis of right lower limb; E87.1 Hypo-osmolality and hyponatremia; I10 Essential (primary) hypertension; E03.9 Hypothyroidism, unspecified; E78.00 Pure hypercholesterolemia, unspecified; I87.2 Venous insufficiency (chronic) (peripheral); M19.90 Unspecified osteoarthritis, unspecified site; I48.0 Paroxysmal atrial fibrillation; Z79.01 Long term (current) use of anticoagulants; Z82.49 Family history of ischemic heart disease and other diseases of the circulatory system; Z79.890 Hormone replacement therapy; Z88.1 Allergy status to other antibiotic agents; Z88.2 Allergy status to sulfonamides; Z88.8 Allergy status to other drugs, medicaments and biological substances; Z91.048 Other nonmedicinal substance allergy status; Z87.891 Personal history of nicotine dependence
CPT/HCPCS: 73610; 73630; 80048; 80053; 83605; 85025; 85027; 87040; 87070; 96374; 96375; 97110; 97116; 97162; 97166; 99285

== ENCOUNTER 2024-05-19 17:23 | Inpatient (IN) | payer MEDICARE, OTHER, SELFPAY ==
[2024-05-19 16:00] VITALS: BP 154/86
--- NOTE | 2024-05-19 16:46 | ED.SKININJ ---
HPI-Injury
General
Chief Complaint: Skin Problem
Source: patient
Exam Limitations: none
Time Seen by Provider: 05/19/24 16:22
Nursing documentation reviewed up to this point in time: agreed with
History of Present Illness-Injury
Is this injury a work related problem?: No
Is pt an associate of [facility]?: No
Initial Injury comments:
Patient to ED with complaint of continue pain redness and swelling to right foot and ankle. She was inpatient here 05/04-05/07 for cellulitis to RLE. Tx with IV ancef and then discharged home on keflex. Last dose of keflex was 3 days ago. She
reports continued fevers at home. Sent for outpatient CT today by PCP. Results: 'irregular ovoid rim-enhancing fluid collection within the posterior ankle soft tissues just anterosuperior to the retrocalcaneal bursa and deep to the Achilles
tendon, measuring approximately 3.7 x 1.4 x 4.7 cm.' Sent to ED for admission. On eliquis. Last dose this AM
Past History
Past History
ED Past Medical History: Arrthythmia, HTN, Hypercholesterolemia, Hypothyroidism, Other (Cellulitis RLE (2005)) and Other (Osteoarthritis)
ED Past Surgical History: Cholecystectomy, Orthopedic (Right wrist surgery) and Other (Laser ablation of right greater saphenous vein)
Social History
Tobacco: Former smoker
Alcohol: None
Drug: None
Personal:
Living: with family
Family History
Family History: Hypertension and CAD; Negative Diabetes
Review of Systems
Review of Systems
Allergies reviewed?: Yes
All Other Systems: ROS reviewed and negative except as documented in HPI and ROS
Constitutional: Reports no symptoms
EENT: Reports no symptoms
Respiratory: Reports no symptoms
Cardiac: Reports no symptoms
ABD/GI: Reports no symptoms
Musculoskeletal: Reports joint pain (right ankle paink)
Skin: Reports other (erythema, pain, swelling RLE)
Neurological: Reports no symptoms
Psychiatric: Reports no symptoms
Phy Exam
General Physical Exam
General Presentation: well appearing and moderate distress
General age: appears stated age
General Skin: warm and dry
General Habitus: normal
General Mental: alert
Musculoskeletal Exam
Musculoskeletal Exam: neuro vasc intact and other (right posterior ankle pain)
Skin Exam
Skin Exam: other (Pain redness swelling right lower extremity)
Psychiatric Exam
Psychiatric Exam: normal mood/affect
Course
Orders/Labs/Results
Orders:
Orders
05/19/24 Dinner
Regular
At Your Request: Full Participation
05/19/24 16:46
CeFAZolin 1 GRAM [Ancef] 1 gram in 5 ml IV NOW
05/19/24 16:53
ORTHOPEDIC CONSULT Urgent
Consulting Provider: Alexei Acharya
Was physician already notified: Yes
05/19/24 16:54
Morphine Sulfate 4 mg IV NOW STA
Ondansetron Injectable [Zofran] 4 mg IV NOW STA
05/19/24 16:55
0.9% Sodium Chloride 1000 ml [Nss] 1,000 ml IV BOLUS
05/19/24 16:59
Complete Blood Count/With Diff Urgent
Comprehensive Metabolic Panel Urgent
Lactic Acid Urgent
05/19/24 17:13
Admit/Transfer Patient As Directed
Co-Sign Provider:
Level of Care: Inpatient admission
Assign to:: Medical/Surgical
Physician / Group: lexi
Diagnosis: cellulitis with abscess
Reason for Hospitalization: cellulitis with abscess
Expected length of stay greater than two midnights?: Yes
ELOS- Estimated Length of Stay in days: 2
I certify the patient meets the requirements for IP care: Yes
Code Status As Directed
Resuscitation Status: Do not resuscitate
Reached after discussion with pt or family/Healthcare POA: Yes
DNR Bracelet Application ONCE
PRN Pain Medication Management As Directed
May give lesser potent ordered pain med per pt: Yes
preference::
Protocol:: Medication orders for pain may be administered in a
manner that supports deferring to patient preference
when the pt is:
- Requesting an ordered lesser potent pain medication.
Least to most potent pain medications are defined
as: acetaminophen < NSAID < tramadol < opioids
(morphine, oxycodone, hydromorphone).
- Requesting a lesser dose of the same medication IF
ORDERED.
- Requesting a less intrusive route of administration
if both routes are prescribed by the provider (PO <
IV).
05/19/24 18:19
Acetaminophen [Tylenol] 650 mg PO Q4HPRN PRN
HYDROmorphone [Dilaudid] 0.5 mg IV Q4HPRN PRN
05/19/24 18:19
Activity As Directed
Activity Level: As Tolerated
Pneumatic Compression Sleeves As Directed
Type: Knee high
Vital Signs As Directed
Frequency: Per unit guidelines
DX Deep Vein Thrombosis Video Routine
05/19/24 18:30
Artificial Tears (Pf) [Refresh Eye Drops (Pf)] 1 drops BOTH EYES Q6HPRN PRN
05/19/24 19:00
Diltiazem Extended Release [Cardizem Cd] 360 mg PO QPM
05/19/24 20:00
Vit C/Vit E/Lutein/Min/[place]-3 [Ocuvite Softgel] 1 cap PO BID
05/20/24 02:00
CeFAZolin 1 GRAM [Ancef] 1 gram in 5 ml IV Q8H
05/20/24 06:00
Complete Blood Count/With Diff IN AM
Comprehensive Metabolic Panel IN AM
Levothyroxine [Synthroid] 125 mcg PO DAILY @ 0600
05/20/24 08:00
Atorvastatin [Lipitor] 10 mg PO DAILY
Losartan [Cozaar] 100 mg PO DAILY
Multivitamin [Theragran] 1 tablet PO DAILY
Abnormal Lab Results
05/19/24
16:59
RBC 3.67 L 10^6/uL
(4.20-5.40)
Hgb 10.5 L g/dL
(12.0-16.0)
Hct 31.5 L %
(37.0-47.0)
Plt Count 440 H 10^3/uL
(130-400)
Absolute Neuts (auto) 7.3 H 10^3/uL
(1.4-6.5)
Absolute Monos (auto) 1.0 H 10^3/uL
(0.1-0.6)
Lymphocytes % 12.6 L %
(20.5-51.1)
Monocytes % 10.7 H %
(1.7-9.3)
Sodium 129 L mmol/L
(135-145)
Chloride 93 L mmol/L
(98-107)
BUN 21 H mg/dl
(7-17)
05/19/24 16:59
05/19/24 16:59
Vital Signs
Initial and Last Documented VS:
Initial Vital Signs
Temp Pulse Resp BP Pulse Ox
98.5 F 71 18 154/86 97
05/19/24 16:00 05/19/24 16:00 05/19/24 16:00 05/19/24 16:00 05/19/24 16:00
Last Documented Vital Signs
Temp Pulse Resp BP Pulse Ox
98.6 F 72 16 129/66 95
05/19/24 19:15 05/19/24 19:15 05/19/24 19:15 05/19/24 19:15 05/19/24 19:15
*Radiology
Radiology exam reviewed: radiology read reviewed
*Pulse Oximetry
Patient hypoxic: no
*Critical Care Note
Total Time (30-74mins, 75-104mins- exclusive of procedures): Not Applicable
Update Note
Update Note:
CT confirmation of abscess to right posterior ankle. Will admit to hospitalist service. Dr. Acharya notified of admission, will consult.
ED Attending Note
-
Portions of this chart may have been created with voice recognition software.� Occasional wrong word or��sound alike� substitutions may have occurred due to the inherent limitations of voice recognition software.
Discharge Plan
Departure
Patient Disposition: Admit
Date of Disposition: 05/19/24
Time of Disposition: 16:52
Presentation/result/management discussed w/ accepting MD/DO: Hospitalist
Patient with high blood pressure during this ER visit?: No
Condition: Fair
Covid-19: Not Applicable
Discharge Problem:
Cellulitis and abscess of right lower extremity
Interventions
Interventions:
*Risk Screen - Suicide Last Done: 05/19/24 18:07
*General Assessment Last Done: 05/19/24 18:07
*Neglect/Abuse Screening Last Done: 05/19/24 18:07
*ED COVID-19 Vaccine History Last Done: 05/19/24 18:07
*Nursing Disposition Last Done: 05/19/24 18:26
ED-Skin Assessment Last Done: 05/19/24 18:07
Discharge Date and Time
Discharge Date/Time: 05/19/24 18:26
[2024-05-19 17:09] LABS: % Basophils 0.5 % (0-2); % Eosinophils 0.8 % (0-6); % Immature Granulocytes 0.4 % (0-0.5); % Lymphocytes 12.6 % (20.5-51.1); % Monocytes 10.7 % (1.7-9.3); Absolute Basophils 0.1 10^3/uL (0-0.2); Absolute Eosinophils 0.1 10^3/uL (0-0.7); Absolute Lymphocytes 1.2 10^3/uL (1.2-3.4); Absolute Neutrophils 7.3 10^3/uL (1.4-6.5); Hematocrit 31.5 % (37.0-47.0); Hemoglobin 10.5 g/dL (12.0-16.0); Mean Corp Hgb Conc. 33.3 g/dL (33.0-37.0); Mean Corpuscular Hgb 28.6 pg (27.0-31.0); Mean Corpuscular Volume 85.8 fL (81.0-99.0); Mean Platelet Volume 8.3 fL (7.4-10.4); Nucleated Red Blood Cells % 0 %; Platelet Count 440 10^3/uL (130-400); Red Blood Cell Count 3.67 10^6/uL (4.20-5.40); Red Cell Dist. Width 13.7 % (11.5-14.5); White Blood Cell Count 9.7 10^3/uL (4.8-10.8)
--- NOTE | 2024-05-19 17:19 | HPS.HSE ---
Family Physician
-
Family Physician: Viktoriya Underwood
Chief Complaint
-
right foot pain
History of Present Illness
83-year-old female past medical history of paroxysmal atrial fibrillation on Eliquis, hypertension, hyperlipidemia, hypothyroidism, hyponatremia, recurrent cellulitis right lower extremity, presenting for pain, redness and swelling of right foot and
ankle that is not completely improved from her recent admission.
Patient was admitted here from 05/04 to 05/07 for right lower extremity cellulitis treated with Ancef with transition to Keflex. She finished Keflex 3 days ago with some improvement but continued to have fevers and chills at home. Then the pain and
swelling and redness started to increase again. She had outpatient CT scan by her primary care physician which showed abscess and was sent to the emergency room. She last took Eliquis this morning.
She drinks alcohol occasionally. She denies smoking.
Medical History
Past Medical History
Past Medical History: Reports Other ( paroxysmal atrial fibrillation on Eliquis, hypertension, hyperlipidemia, hypothyroidism, hyponatremia, recurrent cellulitis right lower extremity)
Past Surgical History: Reports Other (Cholecystectomy, Orthopedic (Right wrist surgery) and Other (Laser ablation of right greater saphenous vein))
Social History
Tobacco: Non-smoker
Alcohol: Occasional
Drug: None
Family History
Family History: Not pertinent
Allergies / Home Medications
Allergies reflects when Allergies were last updated in [employer].
Home Medications with original date entered in [employer]
Allergy/Medication List:
Allergies
Allergy/AdvReac Type Severity Reaction Status Date / Time
adhesive Allergy skin tears Verified 05/04/24 09:44
Sulfa (Sulfonamide Allergy Rash Verified 05/04/24 09:44
Antibiotics)
trimethoprim Allergy Unknown Verified 05/04/24 09:44
vancomycin [Vancomycin] Allergy Hives Verified 05/04/24 09:44
Home Medications
levothyroxine 125 mcg tablet 125 mcg PO DAILY Thyroid 03/27/22
vit C 250 mg-vit E 90 mg-zinc 40 mg-copper 1 bo-sibxgn-qwqhpv capsule (PreserVision AREDS-2) 1 ea PO BID Supplement 03/27/22
apixaban 5 mg tablet (Eliquis) 5 mg PO BID #60 tabs 07/26/22
losartan 100 mg tablet 100 mg PO DAILY #1 tab 07/26/22
acetaminophen 650 mg tablet,extended release 650 mg PO DAILY mild pain 05/04/24
diltiazem HCl 360 mg capsule,extended release 24 hr 360 mg PO QPM Blood Pressure 05/04/24
lovastatin 20 mg tablet 20 mg PO DAILY High Cholesterol 05/04/24
therapeutic multivitamin 1 tab PO DAILY Supplement 05/04/24
polyvinyl alcohol 1.4 % eye drops 1 drp BOTH EYES Q6HPRN PRN dry eyes 05/19/24
Review of Systems
-
History Source: Patient
A 12 point ROS was completed and negative except as noted: Yes
Constitutional: Reports No Symptoms
EENT: Reports No Symptoms
Respiratory: Reports No Symptoms
Cardiac: Reports No Symptoms
Abdomen/GI: Reports No Symptoms
: Reports No Symptoms
Musculoskeletal: Reports No Symptoms
Skin: Reports See HPI
Neurological: Reports No Symptoms
Endocrine: Reports No Symptoms
Hematologic/Lymphatic: Reports No Symptoms
Psych: Reports No Symptoms
Physical Exam
Vital Signs
Vital Signs
Temp Pulse Resp BP Pulse Ox
98.5 F 71 18 154/86 97
05/19/24 16:00 05/19/24 16:00 05/19/24 16:00 05/19/24 16:00 05/19/24 16:00
Physical Exam
General: Well Developed, Well Nourished and No Apparent Distress
HEENT: NormoCephalic, Moist mucous membranes and Atraumatic
Respiratory: Clear
Cardiac: S1/S2 and Regular Rhythm; No Murmur or Rub
GI: Soft, Non Tender, Non Distended and Normal Bowel Sounds; No Organomegaly
Rectal: Deferred by Provider
Musculoskeletal: No Clubbing, No Cyanosis and No Edema
Skin: Other (right lower extremity swelling, pain and erythema up to mid calf particularly over achilles region ); No Rash
Neuro: Nonfocal/grossly intact
Laboratory Results
-
05/19/24 16:59
Data Reviewed
-
Lab Data: Labs Reviewed by me
Old Records: Reviewed
Impression/Plan
-
IMPRESSION:
PLAN:
# Persistent right lower extremity cellulitis with abscess
-CT scan shows rim-enhancing fluid collection within the posterior ankle soft tissue anterior superior to the retrocalcaneal bursa and deep to the Achilles tendon measuring 3.7 x 1.4 x 4.7 cm
-continue cefazolin
-IV fluids given
-Ortho consulted for drainage
-ID consulted
-Hold Eliquis until drainage
-Tylenol, Dilaudid for pain
Paroxysmal atrial fibrillation
-Hold Eliquis
-Continue diltiazem
Essential hypertension
-Continue losartan
Hyperlipidemia
-Continue statin
Hypothyroidism
-Continue levothyroxine
Hyponatremia
-Labs pending
Chronic anemia
-Hemoglobin stable
DNR/DNI
DVT prophylaxis�SCDs
Regular diet
[2024-05-19 17:22] LABS: Lactic Acid 0.8 mmol/L (0.7-2.0)
[2024-05-19 17:30] LABS: ALT (SGPT) 18 U/L (0-35); AST (SGOT) 25 U/L (14-36); Albumin 4.1 g/dl (3.5-5.0); Alkaline Phosphatase 72 U/L (38-126); Blood Urea Nitrogen 21 mg/dl (7-17); Calcium 9.5 mg/dl (8.4-10.2); Carbon Dioxide 30 mmol/L (22-30); Chloride 93 mmol/L (98-107); Glucose 98 mg/dl (70-99); Potassium 4.3 mmol/L (3.5-5.1); Sodium 129 mmol/L (135-145); Total Bilirubin 0.4 mg/dl (0.2-1.3); Total Protein 7.1 g/dl (6.3-8.2)
[2024-05-19] MEDS: NSS 1000 IV (17:37)
[2024-05-19] MEDS: ZOFRAN 4 MG IV (17:39)
[2024-05-19] MEDS: MORPHINE SULFATE 4 MG IV (17:39)
[2024-05-19] MEDS: ANCEF 5 IV (17:39)
[2024-05-19 19:15] VITALS: BP 129/66; BMI 22.3
[2024-05-19 20:05] VITALS: BP 129/66; BMI 22.3
[2024-05-19] MEDS: CARDIZEM CD 360 MG PO (20:09)
[2024-05-19] MEDS: OCUVITE SOFTGEL 1 CAP PO (20:09)
[2024-05-19] MEDS: TYLENOL 650 MG PO (22:37)
[2024-05-19 23:05] VITALS: BP 90/50
--- NOTE | 2024-05-20 00:45 | PTCARENOTE ---
Casey texted house provider that pt's BP 90/50. Pt was asymptomatic and resting comfortably in bed. Provider advised to re-check BP an hour later. Repeat BP 117/56.
[2024-05-20 00:48] VITALS: BP 117/56
[2024-05-20] MEDS: ANCEF 5 IV ×2 (02:01→09:28)
[2024-05-20] MEDS: SYNTHROID 125 MCG PO (05:03)
[2024-05-20] MEDS: TYLENOL 650 MG PO ×3 (05:04→17:54)
[2024-05-20 07:00] VITALS: BP 128/65
[2024-05-20 08:31] LABS: % Basophils 0.8 % (0-2); % Eosinophils 2.5 % (0-6); % Immature Granulocytes 0.3 % (0-0.5); % Lymphocytes 13.8 % (20.5-51.1); % Monocytes 12.1 % (1.7-9.3); % Neutrophils 70.5 % (42.2-75.2); Absolute Basophils 0.1 10^3/uL (0-0.2); Absolute Eosinophils 0.2 10^3/uL (0-0.7); Absolute Lymphocytes 1.1 10^3/uL (1.2-3.4); Absolute Monocytes 0.9 10^3/uL (0.1-0.6); Absolute Neutrophils 5.4 10^3/uL (1.4-6.5); Hematocrit 27.3 % (37.0-47.0); Hemoglobin 9.2 g/dL (12.0-16.0); Mean Corp Hgb Conc. 33.7 g/dL (33.0-37.0); Mean Corpuscular Hgb 28.3 pg (27.0-31.0); Mean Platelet Volume 8.6 fL (7.4-10.4); Nucleated Red Blood Cells % 0 %; Platelet Count 411 10^3/uL (130-400); Red Blood Cell Count 3.25 10^6/uL (4.20-5.40); Red Cell Dist. Width 13.7 % (11.5-14.5); White Blood Cell Count 7.7 10^3/uL (4.8-10.8)
[2024-05-20 08:50] LABS: ALT (SGPT) 14 U/L (0-35); AST (SGOT) 23 U/L (14-36); Albumin 3.4 g/dl (3.5-5.0); Alkaline Phosphatase 62 U/L (38-126); Blood Urea Nitrogen 16 mg/dl (7-17); Calcium 9.3 mg/dl (8.4-10.2); Carbon Dioxide 29 mmol/L (22-30); Chloride 98 mmol/L (98-107); Estimated Creatinine Clearance 52 ml/min; Glucose 95 mg/dl (70-99); Potassium 4.8 mmol/L (3.5-5.1); Sodium 131 mmol/L (135-145); Total Bilirubin 0.3 mg/dl (0.2-1.3); Total Protein 6.2 g/dl (6.3-8.2); eGFR > 60.00
[2024-05-20 09:20] LABS: Total Iron Binding Capacity 189 ug/dl (265-497)
[2024-05-20 09:24] LABS: Iron 20 ug/dl (37-170); Percent Saturation 10 % (20-50)
[2024-05-20] MEDS: COZAAR 100 MG PO (09:26)
[2024-05-20] MEDS: OCUVITE SOFTGEL 1 CAP PO ×2 (09:26→21:04)
[2024-05-20] MEDS: LIPITOR 10 MG PO (09:26)
[2024-05-20] MEDS: THERAGRAN 1 TABLET PO (09:26)
[2024-05-20 11:30] LABS: Osmolality Serum 277 mOsm/kg (275-300)
[2024-05-20 11:54] LABS: Ferritin 96.7 ng/ml (11.1-264.0)
[2024-05-20 12:08] LABS: Vitamin B12 334 pg/ml (239-931)
--- NOTE | 2024-05-20 12:26 | PHA.VAN.IN ---
Assessment
- Assessment
Renal Function: Appears similar to baseline
Concomitant Antimicrobials: cefazolin
AUC Dosing Plan
- Dosing Variables
Dosing Weight (kg): 63
Dosing CrCl (ml/min): 52
Vd coefficient (L/kg): 0.7
- Empiric Dosing
Maintenance Regimen: Vanc 1000mg Q24H - first dose now then 0600 in lieu of loading dose
Estimated AUC (mcg*h/mL): 488
Estimated Peak (mcg*h/mL): 33
Estimated Trough (mcg/ml): 11.2
Estimated Half Life (H): 14.6
Infuse over 2 hours given possibly prior infusion reaction history
- Monitoring
No levels ordered at this time: consider levels in next few days
Pharmacokinetics Vancomycin I
- -
Patient Age: 83
Patient Sex: Female
Vancomycin Day #: 1
Indication: Skin And Soft Tissue
Requesting Provider: Dr. Eduardo
Pertinent Antimicrobial Allergies:
sulfonamide antibiotics - rash; childhood
vancomycin - hives 10 y ago
Height / Weight:
Height 5 ft 6 in
Actual Weight 62.596 kg
- Vital Signs / Lab Results
Temp Pulse Resp BP Pulse Ox
98.8 F 73 18 128/65 94
05/20/24 07:00 05/20/24 07:00 05/20/24 07:00 05/20/24 07:00 05/20/24 07:00
Lab Results - Hematology
05/19/24 05/20/24
16:59 07:45
WBC 9.7 7.7
Lab Results - Chemistry
05/19/24 05/20/24
16:59 07:45
BUN 21 H 16
Creatinine 1.0 0.8
Estimated Creat Clear 52
Albumin 4.1 3.4 L
08/13/24
16:59
Lactic Acid 0.8
--- NOTE | 2024-05-20 13:41 | W.PN.HOSP.TC ---
Addendum entered and electronically signed by Jessica Hernandez MD 05/20/24 17:03:
83-year-old female was admitted here from 04-14 with right lower extremity cellulitis. She was treated with Ancef and transition to Keflex at that time. She Finished the Keflex but continued to have fevers and chills. She also had more
redness. Outpatient CT showed an abscess and she was referred to ER.
OI-srd-sfssnvrix fluid collection in the posterior ankle soft tissue superior to the retrocalcaneal bursa and deep to the Achilles tendon 3.7 into 1.4 in the 4.7 cm
On examination cardiovascular system S1-S2 appreciated
Chest clear to auscultation
Abdomen soft and nontender
Right LE redness, fluctuance and tenderness, just above ankle posteriorly.
# Persistent right lower extremity cellulitis with abscess
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
Placed on Ancef
Infectious disease consultation
Ortho consulted for drainage
Pain control
Please obtain OR cultures
# Venous insufficiency with history of right greater saphenous vein laser ablation, left lower extremity vein ablation
# Paroxysmal atrial fibrillation-continue Cardizem, Hold Eliquis
# Essential hypertension-continue Cardizem, losartan
# Hyperlipidemia-continue statin
# Hypothyroidism-Synthroid
# Hyponatremia- check osm studies
# Anemia-replace low normal iron and B12
# DJD/OA
# Ex Smoker
# DVT prophylaxis-Holding Eliquis for drainage
# DNR
Original Note:
Today's Communication/Plan
-
Continue antibiotics
ID and Ortho consult pending
Iron studies pending
Assessment / Plan
Assessment / Plan
IMPRESSION: 83-year-old female with past history of recurrent cellulitis of the right lower extremity presenting with abscess in right ankle.
PLAN:
Right ankle abscess
- CT scan showed rim-enhancing fluid collection (measuring approximately 4 x 5 x 1 cm) in posterior right ankle soft tissue anterior to retrocalcaneal bursa.
- Ortho consult appreciated for drainage of fluid, fluid culture with Gram stain
- Continue cefazolin
- ID consult appreciated for appropriate antibiotic therapy
- Eliquis held until drainage
Anemia (chronic)
- Hemoglobin 9.2 today
- Ordered iron studies
- Colonoscopy started at age 52 (brother had colon cancer), per patient last colonoscopy 2 years ago was normal
- Patient does not note blood in stool, urine
History of paroxysmal A-fib
- Sinus rhythm this admission
- Continue Cardizem
- Eliquis held until drainage
Essential hypertension
- Continue losartan
Hyperlipidemia
- Continue statin
Hypothyroidism
-Continue levothyroxine
DNR
DVT prophylaxis Eliquis
Anticipated Discharge: > 48 hours
Subjective/Interval History
-
Date of Service: May 20, 2024
Objective Data
-
Labs:
Laboratory Results
05/20/24
07:45
WBC 7.7
Hgb 9.2 L
Hct 27.3 L
Plt Count 411 H
Sodium 131 L
Potassium 4.8
Chloride 98
Carbon Dioxide 29
BUN 16
Creatinine 0.8
Glucose 95
Calcium 9.3
Total Bilirubin 0.3
AST 23
ALT 14
Alkaline Phosphatase 62
Vital Signs:
Vital Signs
Temp Pulse Resp BP Pulse Ox
98.8 F 73 18 128/65 94
05/20/24 07:00 05/20/24 07:00 05/20/24 07:00 05/20/24 07:00 05/20/24 07:00
I&O
05/19/24 05/20/24 05/21/24
06:59 06:59 06:59
Intake Total 480 / 480
Balance 480 / 480
Review of Systems
-
History Source: Patient
Constitutional: Reports No Symptoms
EENT: Reports No Symptoms Reported
Respiratory: Reports No Symptoms
Cardiac: Reports No Symptoms
Abdomen/GI: Reports No Symptoms
Breast: Reports No Symptoms
Genitourinary: Reports No Symptoms
Musculoskeletal: Reports Other (Pain in right ankle)
Skin: Reports Other (Redness and swelling along the posterior aspect of right ankle)
Neuro: Reports No Symptoms
Endocrine: Reports No Symptoms
Hematologic / Lymphatic: Reports No Symptoms
Allergy / Immunology: Reports No Symptoms
Physical Exam
-
General: Well Developed, Well Nourished and No Apparent Distress
Respiratory: Clear to Auscultation
Cardiac: Regular Rhythm, S1/S2 and Murmur (Systolic murmur)
GI: Soft, Nontender and Nondistended
Genito-urinary: No Costovertebral Tender
Musculoskeletal: No Clubbing and Other (Erythema, tenderness and swelling of the distal right lower extremity (posterior right ankle). No draining ulcer. Dorsal pedal pulse normal.)
Neuro: Awake, Alert and Oriented
Hematologic / Lymphatic: No Lymphadenopathy
Psych: Calm
[2024-05-20] MEDS: ANCEF 10 IV ×2 (13:44→21:04)
[2024-05-20 15:00] VITALS: BP 134/73
[2024-05-20] MEDS: VITAMIN B-12 1000 MCG PO (16:08)
--- NOTE | 2024-05-20 16:32 | CON.ID ---
Addendum entered and electronically signed by Snehal Eduardo MD 05/20/24 19:54:
I personally performed a history and physical exam of the patient and discussed management with the resident. I reviewed the resident's note and agree with the documented findings and plan of care HPI/CC with the following additions/corrections
CC: right foot pain
HPI: Ms Funes is an 83 year old female with history of venous reflux s/p Laser ablation of right greater saphenous vein with recurrent right lower extremity cellulitis recently on penicillin ppx who presented here yesterday for pain, redness,
swelling of the right foot/ankle. Of note she was seen by PCP mid last month for cellulitis, prescribed cefadroxil which she took, however later with increased redness and swelling tracking up the skin which limited the ROM of the right ankle. No
fevers. Redness progressed and she was admitted here 05/04-05/07 for the same symptoms initially treated with ancef later switched to keflex 500 mg PO QID which she took for a 14 day total course, completing the course 3 days prior to arrival here.
Compression stocking were recommended. She completed the antibiotics and reported some improvement but still with fevers a chills and then about 3 days after finishing the antibiotics she developed increasing pain, swelling.
Since representing here she has been afebrile, bp stable, wb 7.7, hgb 9.2, plt 411 down from 440, no L shift, eos present in normal amounts, cr 1.0 on arrival, na initially 129 now 131, t bili 0.3, ast 23, alt 14, alk phos 62, CT as below.
Currently on cefazolin 1 gm IV q8 hrs. ID is consulted for assistance with management.
Past Medical History: Reports Other (Afib on Eliquis, HTN, HLD, Hypothyroidism, prior recurrent cellulitis to legs on prophylactic penicillin)
Past Surgical History: Cholecystectomy, Right wrist surgery, Laser ablation of right greater saphenous vein, Left LE vein ablation
Social Hx:
Tobacco: Former Smoker
Alcohol: None
Drug: None
Personal:
Living: With Family
Family History: Not pertinent
Allergies: sulfa - rash in childhood
vancomycin - hives 10 years ago
Home meds: reviewed
ROS: negative except as listed above
Vital Signs
Temp Pulse Resp BP Pulse Ox
98.6 F 85 20 155/73 95
05/04/24 09:40 05/04/24 13:17 05/04/24 13:17 05/04/24 13:00 05/04/24 11:01
Physical Exam
General: NAD
Cardiac: S1/S2 and Regular Rhythm, no murmurs, gallops or rubs
Respiratory: clear to auscultation bilaterally, no Wheezes or Rales
GI: Soft and Non Tender, nondistended, normal active bowel sounds
Musculoskeletal: Edema, Right Lower Extremity
Skin: RLE: redness, swelling tenderness about the ankle, no fluctuance, no drainage
Labs: reviewed
05/04/24 MRSA screen negative
05/04/24 blood culture x1 no growth to date
A&P
83 year old female with recurrent cellulitis in the setting of venous reflux s/p venous stripping, previously on penicillin prophylaxis
Purulent Recurrent RLE Cellulitis
Venous Insufficiency
Stated allergies: sulfa - rash, vancomycin hives about 10 years ago
- given relapse with abscess obtain blood cultures x2 to assess for bacteremia
- CT a/p with 3.7 x 1.4 x 4.7 cm rim enhancing fluid collection posterior right ankle anterosuperior to the retrocalcaneal bursa
- recent MRSA screen negative
- blood glucose generally in the normal range
- advise aspiration or I&D of the collection given that size is >2 cm, would send for culture, suspect MSSA
- orthopedics has been consulted
- increased dose of cefazolin to 2 gm iv q8hrs
- add linezolid 600 mg PO BID
- follow clinically
AW
Original Note:
Documented by User: Monica Jc MD, Resident 05/20/24 17:02
Consultation
-
Date/Time Consultation Requested: 05/19 23:08
Requesting Provider: Abdoulaye Valdez MD
Performing Provider: Snehal Eduardo MD
Reason for Consultation: Cellulitis with abscess
Chief Complaint / Past History
Chief Complaint
Cellulitis with abscess
History of Present Illness
83-year-old male with history of recurrent right lower extremity cellulitis. pA-fib on Eliquis, osteoarthritis, right greater saphenous vein ablation, who presented to the ED with pain, redness, swelling of right foot and ankle. She was recently
hospitalized at the hospital from 05/06 - 05/07 for right lower extremity cellulitis where she was treated with IV cefazolin. There was some clinical improvement and patient was discharged on Keflex to complete 14-day ABX course. She did complete
oral antibiotic course and followed up with PCP who sent for outpatient right lower extremity CT which revealed right lower extremity cellulitis and abscess formation within the posterior ankle soft tissues. Of note she has had intermittent fevers
since prior admission.
Right lower extremity cellulitis is recurrent (3 times prior) with first occurrence in 2005 requiring IV vancomycin inpatient and discharge with PICC line for IV vancomycin at home. She notes that she developed hives about a week into home IV
therapy and it was promptly discontinued. Other presentations have been without abscess formation and were treated outpatient with oral abx therapy
Upon arrival to the ED, she was afebrile, with stable vitals, white count 9.7 with left shift. Hemoglobin 10.5, hyponatremic at 129, creatinine 1.0. Cefazolin 1g Q8 was started in ED yesterday, switched to 2g today
Past History
Past Medical History: Arrhythmias (A-fib), CAD, HTN, Hypercholesterolemia, Hypothyroidism and Other (Osteoarthritis)
Past Surgical History: Cholecystectomy, Orthopedic (Bilateral knee replacement, right knee surgery,) and Other (Right greater saphenous vein laser ablation)
Allergy History:
adhesive Allergy (Verified 05/04/24 09:44)
skin tears
Sulfa (Sulfonamide Antibiotics) Allergy (Verified 05/19/24 18:22)
Rash-Remote, in childhood
trimethoprim Allergy (Verified 05/04/24 09:44)
Unknown
vancomycin [Vancomycin] Allergy (Verified 05/19/24 18:22)
Hives-10 y/a
Medications Reviewed: Yes
Social History
Tobacco: Former Smoker (Quit 51 years ago)
Personal:
Living: Alone
Family History
Family History: Not Pertinent
Review of Systems
Review of Systems
General: Negative Fever or Chills
Cardiovascular: Negative Chest Pain
Genital / Urological: Negative Dysuria or Flank Pain
Musculoskeletal: Joint Pain (R Ankle) and Joint Swelling (Right foot and ankle swelling)
Skin / Hair / Nails: Other
Vital Signs
Temp Pulse Resp BP Pulse Ox
97.9 F 78 17 134/73 96
05/20/24 15:00 05/20/24 15:00 05/20/24 15:00 05/20/24 15:00 05/20/24 15:00
Physical Exam
Physical Exam
Constitutional: No Acute Distress and Comfortable
Cardiovascular: Regular Rate, S1/S2 and Murmur (systolic); Negative Rub
Pulmonary: Clear and Non Labored; Negative Wheezes, Rales or Rhonchi
Gastrointestinal: Soft, Non Tender, Non Distended, Normal Bowel Sounds, No Rebound and No Guarding
Genito-Urinary: Negative Suprapubic Tenderness or CVA Tenderness
Extremities: Edema
Musculoskeletal: Joint Swelling (Right leg/ankle/foot swelling, tenderness most prominent in posterior ankle, ROM limited by pain)
Skin: Other (Right leg/ankle/foot erythema with diffuse small areas of sparing, warm to touch. Xerosis noted in area)
Neurological: Awake and Alert
Psychological: Calm
Lab / Diagnostic Study Results
05/20/24 07:45
05/20/24 07:45
Abs Immat Gran (auto) 0.0 10^3/uL (0-0.05) 05/20/24 07:45
Absolute Neuts (auto) 5.4 10^3/uL (1.4-6.5) 05/20/24 07:45
Absolute Lymphs (auto) 1.1 10^3/uL (1.2-3.4) L 05/20/24 07:45
Absolute Monos (auto) 0.9 10^3/uL (0.1-0.6) H 05/20/24 07:45
Absolute Basos (auto) 0.1 10^3/uL (0-0.2) 05/20/24 07:45
Immature Gran % 0.3 % (0-0.5) 05/20/24 07:45
Neutrophils % 70.5 % (42.2-75.2) 05/20/24 07:45
Lymphocytes % 13.8 % (20.5-51.1) L 05/20/24 07:45
Monocytes % 12.1 % (1.7-9.3) H 05/20/24 07:45
Eosinophils % 2.5 % (0-6) 05/20/24 07:45
Basophils % 0.8 % (0-2) 05/20/24 07:45
Lactic Acid 0.8 mmol/L (0.7-2.0) 05/19/24 16:59
Microbiology Results
Micro:
05/20/24 12:49 Blood Culture - Pending
Blood/Venous
05/20/24 12:05 Blood Culture - Pending
Blood/Venous
Assessment / Plan
83-year-old female who presents with purulent cellulitis with ankle abscess
Purulent cellulitis
Posterior ankle abscess formation
Recurrent cellulitis
Vancomycin allergy�hives
- Right lower extremity CT 05/19: irregular ovoid rim-enhancing fluid collection within the posterior ankle soft tissues just anterosuperior to the retrocalcaneal bursa and deep to the Achilles tendon, measuring approximately 3.7 x 1.4 x 4.7 cm.
- Blood cultures pending
- Given size of abscess, will need to be drained. Appreciate orthopedic surgery input
-Will need MRSA coverage. History of vancomycin allergy with hives is convincing for true allergy, vs red man syndrome. Will start linezolid for MRSA coverage.
-Continue cefazolin
-Given history of fevers possibility of bacteremia. Await blood cultures.

Documented by User: Snehal Eduardo MD 05/20/24 19:52
Consultation
-
Date/Time Consultation Requested: 05/19/24 23:08
Date/Time Consultation Performed: 05/20/24 11:26
--- NOTE | 2024-05-20 16:38 | VNURNOTE ---
Chart reviewed. Patient is current with [facility] nursing. Referral placed in [facility] in case dispo to home warranted. Will continue to follow hospital course.
[2024-05-20] MEDS: CARDIZEM CD 360 MG PO (17:55)
[2024-05-20] MEDS: ZYVOX 600 MG PO (21:04)
[2024-05-20] MEDS: COLACE 100 MG PO (21:04)
[2024-05-20] MEDS: DILAUDID 0.5 MG IV (21:04)
[2024-05-20] MEDS: SENOKOT 17.2 MG PO (21:04)
[2024-05-20 22:46] LABS: Osmolality Urine 316 mOsm/kg (300-900)
[2024-05-20 23:05] VITALS: BP 108/65
[2024-05-20 23:25] LABS: Urine Sodium 71 mmol/L (30-90)
[2024-05-21] VITALS (12 sets, daily range): BP systolic 2–144; BP diastolic 44–90
[2024-05-21] MEDS: ANCEF 10 IV ×3 (05:19→22:16)
[2024-05-21] MEDS: SYNTHROID 125 MCG PO (05:19)
[2024-05-21 06:49] LABS: % Basophils 0.5 % (0-2); % Eosinophils 2.2 % (0-6); % Immature Granulocytes 0.5 % (0-0.5); % Lymphocytes 12.2 % (20.5-51.1); % Neutrophils 73.6 % (42.2-75.2); Absolute Eosinophils 0.2 10^3/uL (0-0.7); Absolute Lymphocytes 1.1 10^3/uL (1.2-3.4); Absolute Neutrophils 6.5 10^3/uL (1.4-6.5); Hematocrit 28.1 % (37.0-47.0); Hemoglobin 9.6 g/dL (12.0-16.0); Mean Corp Hgb Conc. 34.2 g/dL (33.0-37.0); Mean Corpuscular Hgb 28.9 pg (27.0-31.0); Mean Corpuscular Volume 84.6 fL (81.0-99.0); Mean Platelet Volume 8.4 fL (7.4-10.4); Nucleated Red Blood Cells % 0 %; Platelet Count 376 10^3/uL (130-400); Red Blood Cell Count 3.32 10^6/uL (4.20-5.40); Red Cell Dist. Width 13.6 % (11.5-14.5); White Blood Cell Count 8.8 10^3/uL (4.8-10.8)
[2024-05-21 07:22] LABS: Blood Urea Nitrogen 17 mg/dl (7-17); Calcium 9.4 mg/dl (8.4-10.2); Carbon Dioxide 28 mmol/L (22-30); Chloride 96 mmol/L (98-107); Estimated Creatinine Clearance 46 ml/min; Glucose 101 mg/dl (70-99); Potassium 4.3 mmol/L (3.5-5.1); Sodium 131 mmol/L (135-145); eGFR > 60.00
--- NOTE | 2024-05-21 07:31 | W.PN.HOSP.TC ---
Addendum entered and electronically signed by Jessica Hernandez MD 05/21/24 13:32:
called son and left message .
Addendum entered and electronically signed by Jessica Hernandez MD 05/21/24 13:31:
I personally performed a history and physical exam of the patient and discussed management with the resident. I reviewed the resident's note and agree with the documented findings and plan of care HPI/CC except changes in documentation.
83-year-old female was admitted here from 04-14 with right lower extremity cellulitis. She was treated with Ancef and transition to Keflex at that time. She Finished the Keflex but continued to have fevers and chills. She also had more
redness. Outpatient CT showed an abscess and she was referred to ER.
CL-tbo-cjpryvapb fluid collection in the posterior ankle soft tissue superior to the retrocalcaneal bursa and deep to the Achilles tendon 3.7 into 1.4 in the 4.7 cm
On examination cardiovascular system S1-S2 appreciated
Chest clear to auscultation
Abdomen soft and nontender
Right LE redness, fluctuance and tenderness, just above ankle posteriorly.
# Persistent right lower extremity cellulitis with abscess
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
Placed on Ancef and Zyvox
Infectious disease consultation appreciated
Ortho consulted for drainage, this afternoon.
Pain control
Please obtain OR cultures
# Venous insufficiency with history of right greater saphenous vein laser ablation, left lower extremity vein ablation
# Paroxysmal atrial fibrillation-continue Cardizem, Hold Eliquis
# Essential hypertension-continue Cardizem, losartan
# Hyperlipidemia-continue statin
# Hypothyroidism-Synthroid
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
# Anemia-replace low normal iron and B12
# DJD/OA
# Ex Smoker
# DVT prophylaxis-Holding Eliquis for drainage.Restart when OK with Ortho
# DNR
Original Note:
Today's Communication/Plan
-
N.p.o. for I&D this afternoon
Continue cefazolin 2 g IV q8h and linezolid 600 mg p.o. bid
Ortho consulted for I&D
Blood cultures pending
Assessment / Plan
Assessment / Plan
IMPRESSION: 83-year-old female with past history of recurrent cellulitis of the right lower extremity presenting with abscess in right ankle. No overnight events or new symptoms. Patient n.p.o. today for aspiration of collection.
PLAN:
Right ankle abscess
- CT scan showed rim-enhancing fluid collection (measuring approximately 4 x 5 x 1 cm) in posterior right ankle soft tissue anterior to retrocalcaneal bursa.
- Ortho consult appreciated for I&D, fluid culture with Gram stain
-Increase dose of cefazolin
- ID consult appreciated for appropriate antibiotic therapy -advised aspiration, orthopedics consult, increased dose of cefazolin to 2 g IV q8hrs, added linezolid 600 mg p.o. twice daily, blood cultures pending
- Eliquis held until drainage
Anemia (chronic)
- Hemoglobin stable, 9.6 today
- Checked iron studies
- Vitamin B12 normal
- Colonoscopy started at age 52 (brother had colon cancer), per patient last colonoscopy 2 years ago was normal
- Patient does not note blood in stool, urine
History of paroxysmal A-fib
- Sinus rhythm this admission
- Continue Cardizem
- Eliquis held until drainage
Essential hypertension
- Continue losartan
Hyperlipidemia
- Continue statin
Hypothyroidism
-Continue levothyroxine
DNR
DVT prophylaxis Eliquis
Anticipated Discharge: > 48 hours
Subjective/Interval History
-
Date of Service: May 21, 2024
Objective Data
-
Labs:
Laboratory Results
05/21/24
06:26
WBC 8.8
Hgb 9.6 L
Hct 28.1 L
Plt Count 376
Sodium 131 L
Potassium 4.3
Chloride 96 L
Carbon Dioxide 28
BUN 17
Creatinine 0.9
Glucose 101 H
Calcium 9.4
Vital Signs:
Vital Signs
Temp Pulse Resp BP Pulse Ox
97.9 F 67 18 108/65 93
05/20/24 23:05 05/20/24 23:05 05/20/24 23:05 05/20/24 23:05 05/20/24 23:05
I&O
05/20/24 05/21/24 05/22/24
06:59 06:59 06:59
Intake Total 480 / 480 1020 / 1020
Balance 480 / 480 1020 / 1020
Review of Systems
-
History Source: Patient
Constitutional: Reports No Symptoms
EENT: Reports No Symptoms Reported
Respiratory: Reports No Symptoms
Cardiac: Reports No Symptoms
Abdomen/GI: Reports No Symptoms
Breast: Reports No Symptoms
Genitourinary: Reports No Symptoms
Musculoskeletal: Reports Other (Pain in right ankle)
Skin: Reports Other (Redness and swelling along the posterior aspect of right ankle)
Neuro: Reports No Symptoms
Endocrine: Reports No Symptoms
Hematologic / Lymphatic: Reports No Symptoms
Allergy / Immunology: Reports No Symptoms
Physical Exam
-
General: Well Developed, Well Nourished and No Apparent Distress
Respiratory: Clear to Auscultation
Cardiac: Regular Rhythm, S1/S2 and Murmur (Systolic murmur)
GI: Soft, Nontender and Nondistended
Genito-urinary: No Costovertebral Tender
Musculoskeletal: No Clubbing and Other (Erythema, tenderness and swelling of the distal right lower extremity (posterior right ankle). No draining ulcer. Dorsal pedal pulse normal.)
Neuro: Awake, Alert and Oriented
Hematologic / Lymphatic: No Lymphadenopathy
Psych: Calm
[2024-05-21] MEDS: FEOSOL 325 MG PO (08:28)
[2024-05-21] MEDS: COLACE 100 MG PO ×2 (08:28→20:08)
[2024-05-21] MEDS: THERAGRAN 1 TABLET PO (08:28)
[2024-05-21] MEDS: COZAAR 100 MG PO (08:28)
[2024-05-21] MEDS: VITAMIN B-12 1000 MCG PO (08:28)
[2024-05-21] MEDS: OCUVITE SOFTGEL 1 CAP PO ×2 (08:28→20:09)
[2024-05-21] MEDS: ZYVOX 600 MG PO ×2 (08:29→20:08)
[2024-05-21] MEDS: LIPITOR 10 MG PO (08:29)
--- NOTE | 2024-05-21 08:34 | W.PN.UPDATE ---
Update Note
Progress Note Update
Full orthopedic consult to follow.
83 year old female with 4 week h/o cellulitis that has failed both oral and IV antibitics.
CT scan shows abscess formation behind achilles tendon.
Recommend right ankle I&D. Scheduled to be performed under direction of Dr. Coulter later today.
Consent for surgery signed and placed in patient's chart.
NPO.
--- NOTE | 2024-05-21 08:46 | W.PN.ID1 ---
Addendum entered and electronically signed by Snehal Eduardo MD 05/21/24 18:17:
I saw and evaluated the patient. I reviewed the resident�s note and agree with findings and plan as documented in the resident�s note with the following additions/corrections
agree with exam as written, in addition, post operative dressing clean/dry/intact and MARY with sanguinous fluid83 year old female with recurrent cellulitis in the setting of venous reflux s/p venous stripping, previously on penicillin prophylaxis
Purulent cellulitis
Posterior ankle abscess formation
Recurrent cellulitis
Venous insufficiency, s/p R saphenous vein ablation
Stated allergies: sulfa - rash, vancomycin - hives about 10 years ago
- blood cultures x2 in progress
- please send cultures from the OR
- not previously colonized with MRSA
- continue cefazolin and linezolid
- s/p I&D appreciate orthopedics
Original Note:
Date of Service
Date of Service: May 21, 2024
Today's Communication
Continue Linezolid and cefazolin
For I&D today
Assessment / Plan
83 year old female with recurrent cellulitis in the setting of venous reflux s/p venous stripping, previously on penicillin prophylaxis
Purulent cellulitis
Posterior ankle abscess formation
Recurrent cellulitis
Venous insufficiency, s/p R saphenous vein ablation
Stated allergies: sulfa - rash, vancomycin - hives about 10 years ago
- Right lower extremity CT 05/19: irregular ovoid rim-enhancing fluid collection within the posterior ankle soft tissues just anterosuperior to the retrocalcaneal bursa and deep to the Achilles tendon, measuring approximately 3.7 x 1.4 x 4.7 cm.
- Blood cultures pending
-Given size of abscess, >2cm, I&D appropriate. I&D by ortho today.
-Will need MRSA coverage. History of vancomycin allergy with hives is convincing for true allergy, vs red man syndrome.
-Continue Linezolid 600mg PO BID
-Continue cefazolin 2g IV q8hrs
-Given history of fevers possibility of bacteremia. Await blood cultures.
- follow clinically
Chief Complaint
-: Cellulitis (purulent) and Other (Ankle abscess)
Subjective / Review of Systems
Review of Systems: No Fever, No Chills, No Abdominal Pain, No Dysuria and Joint Pain (R ankle)
Vital Signs / Physical Exam
Vital Signs
Vital Signs
Temp Pulse Resp BP Pulse Ox
98.3 F 87 16 136/86 95
05/21/24 07:34 05/21/24 07:34 05/21/24 07:34 05/21/24 07:34 05/21/24 07:34
Physical Exam
Constitutional: Comfortable
Cardiovascular: Regular Rate, S1/S2 and Murmur (systolic); Negative Rub
Pulmonary: Clear and Non Labored; Negative Wheezes, Rales or Rhonchi
Gastrointestinal: Soft, Non Tender, Non Distended, Normal Bowel Sounds, No Rebound and No Guarding
Genito-Urinary: Negative Suprapubic Tenderness or CVA Tenderness
Musculoskeletal: Joint Swelling (R ankle swelling and tenderness)
Skin: Other (redness, swelling tenderness of R ankle, no fluctuance, no drainage. Xerosis noted)
Objective Data
Lab Data
Lab Results
05/21/24 06:26
05/21/24 06:26
Estimated Creat Clear 46 ml/min 05/21/24 06:26
Lactic Acid 0.8 mmol/L (0.7-2.0) 05/19/24 16:59
Total Bilirubin 0.3 mg/dl (0.2-1.3) 05/20/24 07:45
AST 23 U/L (14-36) 05/20/24 07:45
ALT 14 U/L (0-35) 05/20/24 07:45
Alkaline Phosphatase 62 U/L (38-126) 05/20/24 07:45
Most recent labs reviewed.
Micro Results:
05/20/24 12:49 Blood Culture - Pending
Blood/Venous
05/20/24 12:05 Blood Culture - Pending
Blood/Venous
--- NOTE | 2024-05-21 11:56 | CON.ORTHO ---
Consultation
-
Date/Time Consultation Requested: 05/19/2024
Date/Time Consultation Performed: 05/21/2024
Performing Provider: Leandra Fowler PA-C, for Dr. Muhammad
Reason for Consultation: Right ankle abscess
Consultation - Orthopedics
History
HPI: This is an 83 year old female who presented to for worsening cellulitis of her right lower extremity and CT evidence of abscess deep to her achilles tendon. She reports she has been dealing with cellulitis of her RLE for the past 4 weeks.
She has been on multiple rounds of oral antibiotics and was also inpatient at from 05/04/24-05/07/2024. She received IV antibiotics with minimal improvement per the patient. More recently, she has been experiencing ankle pain, swelling of the
posterior soft tissues of the ankle, and difficulty with weight bearing and motion. She was sent for an outpatient CT due to her persistent symptoms, which was concerning for an abscess measuring 3.7 cmx1.4 cmx4.7 cm. She was admitted to the
hospitalists service and our orthopedic group was consulted in for definitive management.
Past medical history: Significant for arrhythmia, hypertension, hypercholesterolemia, hypothyroidism, chronic cellulitis, osteoarthritis.
Past surgical history: Cholecystectomy, right wrist surgery, laser ablation of right greater saphenous vein.
Social history: Former tobacco smoker, denies alcohol or drug use. Lives with family.
Review of systems: All systems reviewed and negative except what is mentioned in HPI.
Allergies / Home Medications
Allergy/AdvReac Type Severity Reaction Status Date / Time
adhesive Allergy skin tears Verified 05/04/24 09:44
Sulfa (Sulfonamide Allergy Rash-Remote, Verified 05/19/24 18:22
Antibiotics) in
childhood
trimethoprim Allergy Unknown Verified 05/04/24 09:44
vancomycin [Vancomycin] Allergy Hives-10 Verified 05/19/24 18:22
y/a
�Medication �Instructions �Recorded
levothyroxine 125 mcg tablet 125 mcg PO DAILY Thyroid 03/27/22
vit C 250 mg-vit E 90 mg-zinc 40 1 ea PO BID Supplement 03/27/22
mg-copper 1 [id number]
capsule (PreserVision AREDS-2)
losartan 100 mg tablet 100 mg PO DAILY #1 tab 07/26/22
acetaminophen 650 mg 650 mg PO DAILY mild pain 05/04/24
tablet,extended release
diltiazem HCl 360 mg 360 mg PO QPM Blood Pressure 05/04/24
capsule,extended release 24 hr
lovastatin 20 mg tablet 20 mg PO DAILY High Cholesterol 05/04/24
therapeutic multivitamin 1 tab PO DAILY Supplement 05/04/24
polyvinyl alcohol 1.4 % eye drops 1 drp BOTH EYES Q6HPRN PRN dry eyes 05/19/24
apixaban 5 mg tablet (Eliquis) 5 mg PO BID Blood Clot 05/20/24
Prevention/Tx
Vital Signs / Lab Results
Temp Pulse Resp BP Pulse Ox
98.3 F 87 16 136/86 95
05/21/24 07:34 05/21/24 07:34 05/21/24 07:34 05/21/24 07:34 05/21/24 07:34
05/21/24 06:26
05/21/24 06:26
Physical Examination:
General: Well-developed, well-nourished female in obvious pain at rest. AAOx4.
HEENT: Atraumatic, normocephalic, neck supple.
Lungs: Nonlabored breathing on room air. No audible wheezing.
Right lower extremity: Erythematous changes noted diffusely about the lower extremity. There is a mottled appearance to the skin of the ankle. Significant swelling about the ankle with less extension into the foot. Significantly limited range of
motion secondary to pain. Neurovascular intact distally
Radiographic studies:
CT scan of the ankle there is evidence of an irregular ovoid rim-enhancing fluid collection within the posterior soft tissues of the ankle just anterior and superior to the retrocalcaneal bursa and deep to the Achilles tendon, measuring 3.7 x 1.4 x
4.7 cm
Assessment / Plan
Assessment: Right ankle abscess.
Plan: Unfortunately, Ms. Funes has a rather large abscess in the posterior soft tissues of her ankle. Her pain correlates with this region. She has failed to improve with both oral and IV antibiotics. Her case was discussed with Dr. Coulter.
At this point, recommendation is to proceed with a right ankle I&D later this afternoon under the direction of Dr. Coulter. The procedure was discussed in detail along with the associated risk, benefits, and recovery process. Surgical and blood
transfusion consents were obtained and placed in patient's chart. She will remain n.p.o. All questions were answered and patient was in agreement with treatment recommendations.
[2024-05-21] MEDS: D5/0.9% SODIUM CHLORIDE 1000 IV (14:09)
[2024-05-21] MEDS: DILAUDID 0.5 MG IV (15:22)
--- NOTE | 2024-05-21 16:35 | CM ---
Reviewed chart, met with patient's son who was at bedside to obtain information for assessment as patient was in OR. Patient's son stated that patient lives alone in a one story house with 3 steps to enter. He described patient as independent with
all of her ADLs personal care, bathing, bathing and ambulates with a walker. 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 Patient was able to drive and could transport herself to the store and to her appointments.
Patient also has a cane and a w/c.
Patient is current with [facility]. She selects for resumption.
She has never been to a SNF.
Patient has a prescription plan and uses, [facility] [place] for all of her medications.
Her PCP is, Viktoriya Underwood.
Patient's son stated that patient has a good support network and people who can check on her at home. He feels that she will be able to return home when stable medically.
Plan: Case management will continue to follow and assist with discharge planning. [facility].
--- NOTE | 2024-05-21 17:09 | W.PN.UPDATE ---
Update Note
Progress Note Update
s/p Right ankle incision and drainage
-WBAT in Surgical shoe, elevate while in bed
-MARY drain placed, will likely pull prior to discharge, ideally remove once below 30cc of drainage per 24 hours
-Continue ancef, adjust abx per cultures appreciate ID recs
-Dressing changes 3 x per week
-Will follow
[2024-05-21] MEDS: DILAUDID 0.25 MG IV (17:31)
[2024-05-21] MEDS: CARDIZEM CD 360 MG PO (18:21)
[2024-05-21] MEDS: SENOKOT 17.2 MG PO (22:15)
[2024-05-22] VITALS (7 sets, daily range): BP systolic 110–124; BP diastolic 60–76; PULSE 80–82; O2SAT 96; BMI 22.3
[2024-05-22] MEDS: DILAUDID 0.5 MG IV (01:51)
[2024-05-22] MEDS: SYNTHROID 125 MCG PO (05:06)
[2024-05-22] MEDS: ANCEF 10 IV (05:06)
--- NOTE | 2024-05-22 07:18 | W.PN.ID1 ---
Addendum entered and electronically signed by Snehal Eduardo MD 05/22/24 13:46:
I saw and evaluated the patient. I reviewed the resident�s note and agree with findings and plan as documented in the resident�s note with the following additions/corrections
agree with exam as written
switched cefazolin to keflex 500 mg PO qid, continue linezolid - plan 7 more days of treatment
will follow up OR cultures
drain management per surgery
stable for dc from ID perspective
Original Note:
Date of Service
Date of Service: May 22, 2024
Today's Communication
Continue Linezolid/cefazolin
Assessment / Plan
83 year old female with recurrent cellulitis in the setting of venous reflux s/p venous stripping, previously on penicillin prophylaxis
Purulent cellulitis
Posterior ankle abscess formation
Recurrent cellulitis
Previously on penicillin prophylaxis
Venous insufficiency, s/p R saphenous vein ablation
Stated allergies: sulfa - rash, vancomycin - hives about 10 years ago
S/P R ankle incision and drainage 05/21
- Right lower extremity CT 05/19: irregular ovoid rim-enhancing fluid collection within the posterior ankle soft tissues just anterosuperior to the retrocalcaneal bursa and deep to the Achilles tendon, measuring approximately 3.7 x 1.4 x 4.7 cm.
- Blood cultures no growth in 24hrs
- Wound cultures pending
- Minor bloody drainage from MARY drain. 12cc in past 24 hours
-Given size of abscess, >2cm, I&D appropriate. s/p I&D by surgical podiatry 05/21. MARY drain in place
-Will need MRSA coverage. History of vancomycin allergy with hives is convincing for true allergy, vs red man syndrome.
-Continue Linezolid 600mg PO BID
-Continue cefazolin 2g IV q8hrs
-Posy-op care per Foot and ankle surgery
- follow clinically
Chief Complaint
-: Cellulitis (purulent) and Other (Ankle abscess)
Subjective / Review of Systems
No fevers overnight.
S/P R ankle I&D by Foot and ankle surgeon
One episode of a-fib during surgery. HR rate normal since
Pt reports significant improvement of symptoms
Review of Systems: No Fever, No Chills, No Chest Pain, No Palpitations, No Abdominal Pain, No Dysuria and Joint Pain (R ankle)
Vital Signs / Physical Exam
Vital Signs
Vital Signs
Temp Pulse Resp BP Pulse Ox
98.6 F 57 18 110/60 94
05/22/24 03:39 05/22/24 03:39 05/22/24 03:39 05/22/24 03:39 05/22/24 03:39
Physical Exam
Constitutional: No Acute Distress and Comfortable
Cardiovascular: Regular Rate, S1/S2 and Murmur (systolic); Negative Rub or Peripheral Edema
Pulmonary: Clear
Gastrointestinal: Soft, Non Tender, Non Distended, Normal Bowel Sounds, No Rebound and No Guarding
Genito-Urinary: Negative Suprapubic Tenderness or CVA Tenderness
Musculoskeletal: Other (Right ankle with dressings intact, James wrap, tender. MARY drain with small amount of blood in bulb)
Skin: Warm and Dry
Neurological: Awake, Alert and Other (answers questions appropriately. )
Psychological: Calm
Objective Data
Lab Data
Estimated Creat Clear 46 ml/min 05/21/24 06:26
Lactic Acid 0.8 mmol/L (0.7-2.0) 05/19/24 16:59
Total Bilirubin 0.3 mg/dl (0.2-1.3) 05/20/24 07:45
AST 23 U/L (14-36) 05/20/24 07:45
ALT 14 U/L (0-35) 05/20/24 07:45
Alkaline Phosphatase 62 U/L (38-126) 05/20/24 07:45
Most recent labs reviewed.
Micro Results:
05/20/24 12:49 Blood Culture - Preliminary
Blood/Venous No Growth in 24 hours- Final report to follow
05/20/24 12:05 Blood Culture - Preliminary
Blood/Venous No Growth in 24 hours- Final report to follow
--- NOTE | 2024-05-22 07:32 | W.PN.ORTHO ---
Today's Communication / Plan
-
83F POD 1 R ankle D&I w/ Dr. Coulter
-WBAT in Surgical shoe, elevate while in bed-DVT ppx per primary, can start today
-MARY drain placed, will likely pull prior to discharge, ideally remove once below 30cc of drainage per 24 hours
-Continue ancef, adjust abx per cultures appreciate ID recs
-Dressing changes 3 x per week
-Podiatry/ortho surg will continue Will follow peripherally at this time; please reengage with further questions concerns. Discharge information placedfollow
Assessment
.
Dressing:
Clean, dry and intact.
Plan
.
Surgery / Date: 21 May 2024 R ankle I&D
Activity:
Out of bed.
PT/OT
Subjective
.
.:
Patient using bathroom at time of AM rounds.
Vital Signs and Labs
.
Vital Signs and Labs:
Temp Pulse Resp BP Pulse Ox
98.6 F 57 18 110/60 94
05/22/24 03:39 05/22/24 03:39 05/22/24 03:39 05/22/24 03:39 05/22/24 03:39
[2024-05-22] MEDS: VITAMIN B-12 1000 MCG PO (07:39)
[2024-05-22] MEDS: TYLENOL 650 MG PO ×3 (07:39→21:24)
[2024-05-22] MEDS: OCUVITE SOFTGEL 1 CAP PO ×2 (07:39→20:50)
[2024-05-22] MEDS: COLACE 100 MG PO ×2 (07:39→20:50)
[2024-05-22] MEDS: ZYVOX 600 MG PO ×2 (07:40→20:50)
[2024-05-22] MEDS: LIPITOR 10 MG PO (07:40)
[2024-05-22] MEDS: THERAGRAN 1 TABLET PO (07:40)
[2024-05-22] MEDS: COZAAR 100 MG PO (07:40)
[2024-05-22] MEDS: FEOSOL 325 MG PO (07:40)
[2024-05-22 07:50] LABS: % Basophils 0.1 % (0-2); % Immature Granulocytes 0.4 % (0-0.5); % Lymphocytes 9.7 % (20.5-51.1); % Monocytes 4.8 % (1.7-9.3); Absolute Lymphocytes 0.7 10^3/uL (1.2-3.4); Absolute Monocytes 0.3 10^3/uL (0.1-0.6); Absolute Neutrophils 5.7 10^3/uL (1.4-6.5); Hemoglobin 10.3 g/dL (12.0-16.0); Mean Corp Hgb Conc. 34.3 g/dL (33.0-37.0); Mean Corpuscular Volume 84.5 fL (81.0-99.0); Mean Platelet Volume 8.6 fL (7.4-10.4); Nucleated Red Blood Cells % 0 %; Platelet Count 405 10^3/uL (130-400); Red Blood Cell Count 3.55 10^6/uL (4.20-5.40); Red Cell Dist. Width 13.4 % (11.5-14.5); White Blood Cell Count 6.7 10^3/uL (4.8-10.8)
[2024-05-22 08:04] LABS: Blood Urea Nitrogen 17 mg/dl (7-17); Calcium 9.2 mg/dl (8.4-10.2); Carbon Dioxide 29 mmol/L (22-30); Chloride 93 mmol/L (98-107); Estimated Creatinine Clearance 52 ml/min; Glucose 149 mg/dl (70-99); Potassium 4.4 mmol/L (3.5-5.1); Sodium 129 mmol/L (135-145); eGFR > 60.00
[2024-05-22] MEDS: D5/0.9% SODIUM CHLORIDE IV (08:31)
[2024-05-22] MEDS: KEFLEX 500 MG PO ×3 (13:04→21:24)
--- NOTE | 2024-05-22 13:10 | W.PN.HOSP.TC ---
Addendum entered and electronically signed by Faviola Vega MD, Resident 05/22/24 17:49:
Patient seen at 5.30 pm after I was notified that she was having irregular heart beats. Patient's symptoms lasted for ~10 mins. EKG done - showed normal sinus rhythm. Heart rate is now stable at ~70s. No chest pain, no dizziness. Patient is on
Cardizem and Eliquis. Will continue to monitor her.
Addendum entered and electronically signed by Jessica Hernandez MD 05/22/24 14:41:
I personally performed a history and physical exam of the patient and discussed management with the resident. I reviewed the resident's note and agree with the documented findings and plan of care HPI/CC except changes in my documentation.
CVS: S1-S2 normal
Chest: CTA B/L
Abdomen: Soft, NT / Bowel sounds present
Extremities: right leg bandaged, drain in
I personally performed a history and physical exam of the patient and discussed management with the resident. I reviewed the resident's note and agree with the documented findings and plan of care HPI/CC except changes in documentation.
83-year-old female was admitted here from 04-14 with right lower extremity cellulitis. She was treated with Ancef and transition to Keflex at that time. She Finished the Keflex but continued to have fevers and chills. She also had more
redness. Outpatient CT showed an abscess and she was referred to ER.
WK-plq-pwmaaklms fluid collection in the posterior ankle soft tissue superior to the retrocalcaneal bursa and deep to the Achilles tendon 3.7 into 1.4 in the 4.7 cm
On examination cardiovascular system S1-S2 appreciated
Chest clear to auscultation
Abdomen soft and nontender
Right LE redness Has Post op dressing
# Persistent right lower extremity cellulitis with abscess
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
Placed on Keflex and Zyvox
Infectious disease consultation appreciated
Ortho did I and D 05/21/24
Pain control
Okay to weight-bear with surgical boot on per Ortho
Drain may be removed prior to discharge
Dressing changes 3 times a week
OR cultures pending
# Venous insufficiency with history of right greater saphenous vein laser ablation, left lower extremity vein ablation
# Paroxysmal atrial fibrillation-continue Cardizem, Eliquis
# Essential hypertension-continue Cardizem, losartan
# Hyperlipidemia-continue statin
# Hypothyroidism-Synthroid
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
# Anemia-replace low normal iron and B12
# DJD/OA
# Ex Smoker
# DVT prophylaxis-Eliquis restarted
# DNR
Case management to check and make sure that Zyvox is able to be filled at the pharmacy tomorrow and is covered.
Needs to be in
Daughter flying in to stay with the patient at discharge she prefers to go home
Discussed with niece at bedside.
Original Note:
Today's Communication/Plan
-
Continue linezolid, switched cefazolin IV to oral cephalexin
Removal of MARY drain
PT OT evaluation
Planning discharge by tomorrow
Assessment / Plan
Assessment / Plan
IMPRESSION: 83-year-old female with past history of recurrent cellulitis of the right lower extremity presenting with abscess in right ankle. I&D was performed yesterday. No new symptoms after surgery.
PLAN:
Right ankle abscess
- CT scan showed rim-enhancing fluid collection (measuring approximately 4 x 5 x 1 cm) in posterior right ankle soft tissue anterior to retrocalcaneal bursa.
- Ortho: status post I&D, MARY drain placed, will likely pull before discharge, WBAT in surgical shoe, dressing changes 3 times per week
- ID: transition to cephalexin 500 mg p.o. 4 times daily and continue linezolid 600 mg p.o. twice daily (continue antibiotics through 05/28)
- Eliquis restarted
- Culture with Gram stain pending
- Blood culture no growth in 48 hours
Anemia (chronic)
- Hemoglobin stable, 10.3 today
- Ferrous sulfate started
- Colonoscopy started at age 52 (brother had colon cancer), per patient last colonoscopy 2 years ago was normal
- Patient does not note blood in stool, urine
Hyponatremia
- Likely due to excess fluid intake
- Restrict fluids
History of paroxysmal A-fib
- Sinus rhythm this admission
- Continue Cardizem
- Eliquis restarted
Essential hypertension
- Continue losartan
Hyperlipidemia
- Continue statin
Hypothyroidism
- Continue levothyroxine
DNR
DVT prophylaxis Eliquis
Anticipated Discharge: Within 24 hours
Subjective/Interval History
-
Date of Service: May 22, 2024
Objective Data
-
Labs:
Laboratory Results
05/22/24
07:08
WBC 6.7
Hgb 10.3 L
Hct 30.0 L
Plt Count 405 H
Sodium 129 L
Potassium 4.4
Chloride 93 L
Carbon Dioxide 29
BUN 17
Creatinine 0.8
Glucose 149 H
Calcium 9.2
Vital Signs:
Vital Signs
Temp Pulse Resp BP Pulse Ox
98.1 F 73 16 115/73 96
05/22/24 07:33 05/22/24 07:33 05/22/24 07:33 05/22/24 07:33 05/22/24 07:33
I&O
05/21/24 05/22/24 05/23/24
06:59 06:59 06:59
Intake Total 1020 / 1020 1730 / 1730
Output Total
Balance 1020 / 1020 1718 / 1718
Review of Systems
-
History Source: Patient
Constitutional: Reports No Symptoms
EENT: Reports No Symptoms Reported
Respiratory: Reports No Symptoms
Cardiac: Reports No Symptoms
Abdomen/GI: Reports No Symptoms
Breast: Reports No Symptoms
Genitourinary: Reports No Symptoms
Musculoskeletal: Reports Other (Pain in right ankle)
Skin: Reports Other (Redness and swelling along the posterior aspect of right ankle)
Neuro: Reports No Symptoms
Endocrine: Reports No Symptoms
Hematologic / Lymphatic: Reports No Symptoms
Allergy / Immunology: Reports No Symptoms
Physical Exam
-
General: Well Developed, Well Nourished and No Apparent Distress
Respiratory: Clear to Auscultation
Cardiac: Regular Rhythm, S1/S2 and Murmur (Systolic murmur)
GI: Soft, Nontender and Nondistended
Genito-urinary: No Costovertebral Tender
Musculoskeletal: No Clubbing and Other (Erythema, tenderness and swelling of the distal right lower extremity (posterior right ankle). No draining ulcer. Dorsal pedal pulse normal.)
Neuro: Awake, Alert and Oriented
Hematologic / Lymphatic: No Lymphadenopathy
Psych: Calm
[2024-05-22] MEDS: MIRALAX 17 GRAMS PO (14:54)
[2024-05-22] MEDS: LASIX 20 MG PO (14:54)
--- NOTE | 2024-05-22 15:23 | CM ---
Addendum entered by JAMEE Black 05/22/24 15:53:
Referral was made to [facility] and they can accept. Patient has coverage for Linezolid. Will cost her $1.27. This was relayed to attending and resident.
Original Note:
Consult received for [facility]. Patient agreeable to , and cost/coverage for Linezolid. Texted resident back to determine dosage.
Plan: Case management will continue to follow and assist with discharge planning. Home with [facility].
[2024-05-22] MEDS: CARDIZEM CD 360 MG PO (17:25)
[2024-05-22] MEDS: ELIQUIS 5 MG PO (20:50)
[2024-05-22] MEDS: SENOKOT 17.2 MG PO (21:25)
[2024-05-23] MEDS: SYNTHROID 125 MCG PO (05:24)
[2024-05-23 07:29] VITALS: BP 133/77
[2024-05-23 07:34] LABS: % Basophils 0.2 % (0-2); % Eosinophils 0.7 % (0-6); % Immature Granulocytes 0.3 % (0-0.5); % Lymphocytes 15.1 % (20.5-51.1); % Monocytes 9.9 % (1.7-9.3); % Neutrophils 73.8 % (42.2-75.2); Absolute Eosinophils 0.1 10^3/uL (0-0.7); Absolute Lymphocytes 1.3 10^3/uL (1.2-3.4); Absolute Monocytes 0.9 10^3/uL (0.1-0.6); Absolute Neutrophils 6.5 10^3/uL (1.4-6.5); Hematocrit 25.8 % (37.0-47.0); Hemoglobin 8.7 g/dL (12.0-16.0); Mean Corp Hgb Conc. 33.7 g/dL (33.0-37.0); Mean Corpuscular Hgb 27.8 pg (27.0-31.0); Mean Corpuscular Volume 82.4 fL (81.0-99.0); Mean Platelet Volume 8.8 fL (7.4-10.4); Nucleated Red Blood Cells % 0 %; Platelet Count 396 10^3/uL (130-400); Red Blood Cell Count 3.13 10^6/uL (4.20-5.40); Red Cell Dist. Width 13.7 % (11.5-14.5); White Blood Cell Count 8.8 10^3/uL (4.8-10.8)
[2024-05-23 07:56] LABS: Blood Urea Nitrogen 19 mg/dl (7-17); Carbon Dioxide 30 mmol/L (22-30); Chloride 96 mmol/L (98-107); Estimated Creatinine Clearance 46 ml/min; Glucose 98 mg/dl (70-99); Sodium 132 mmol/L (135-145); eGFR > 60.00
[2024-05-23 08:00] VITALS: BMI 22.3
[2024-05-23] MEDS: COLACE 100 MG PO (08:14)
[2024-05-23] MEDS: TYLENOL 650 MG PO (08:14)
[2024-05-23] MEDS: THERAGRAN 1 TABLET PO (08:15)
[2024-05-23] MEDS: LIPITOR 10 MG PO (08:15)
[2024-05-23] MEDS: KEFLEX 500 MG PO ×2 (08:15→13:42)
[2024-05-23] MEDS: VITAMIN B-12 1000 MCG PO (08:15)
[2024-05-23] MEDS: COZAAR 100 MG PO (08:15)
[2024-05-23] MEDS: ELIQUIS 5 MG PO (08:16)
[2024-05-23] MEDS: OCUVITE SOFTGEL 1 CAP PO (08:16)
[2024-05-23] MEDS: ZYVOX 600 MG PO (08:16)
[2024-05-23] MEDS: FEOSOL 325 MG PO (08:17)
[2024-05-23 09:15] LABS: Glycohemoglobin (HgbA1c) 5.9 % (4.0-5.6)
--- NOTE | 2024-05-23 10:26 | W.PN.UPDATE ---
Update Note
Progress Note Update
83F POD 2 R ankle I&D w/ Dr. Coulter
-WBAT in Surgical shoe, elevate while in bed-DVT ppx per primary, can start today
-MARY drain pulled and new, dry dressing placed on right ankle.
-Continue Keflex per ID recs
-Will add flexeril at bedtime to help with muscle spasms. Rx sent to pharmacy through [facility].
-Dressing changes 3 x per week
-Patient stable for d/c home from ortho standpoint.
-Recommend f/u in office in 2 weeks with likely suture removal between 2-3 weeks post op.
[2024-05-23] MEDS: MIRALAX PO (10:48)
[2024-05-23 12:38] LABS: Hemoglobin 9.4 g/dL (12.0-16.0)
--- NOTE | 2024-05-23 13:39 | W.PN.HOSP.TC ---
Today's Communication/Plan
-
Discharge
Assessment / Plan
Assessment / Plan
83-year-old female was admitted here from 04-14 with right lower extremity cellulitis. She was treated with Ancef and transition to Keflex at that time. She Finished the Keflex but continued to have fevers and chills. She also had more
redness. Outpatient CT showed an abscess and she was referred to ER.
LU-nfs-neekumpdh fluid collection in the posterior ankle soft tissue superior to the retrocalcaneal bursa and deep to the Achilles tendon 3.7 into 1.4 in the 4.7 cm
On examination cardiovascular system S1-S2 appreciated
Chest clear to auscultation
Abdomen soft and nontender
Drain pulled.
# Persistent right lower extremity cellulitis with abscess
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
Placed on Keflex and Zyvox
Infectious disease consultation appreciated
Ortho did I and D 05/21/24
Pain control
Okay to weight-bear with surgical boot on per Ortho
Drain may be removed prior to discharge
Dressing changes 3 times a week
OR cultures pending
# Venous insufficiency with history of right greater saphenous vein laser ablation, left lower extremity vein ablation
# Paroxysmal atrial fibrillation-continue Cardizem, Eliquis. Episode of palpitation resolved yesterday.
# Essential hypertension-continue Cardizem, losartan
# Hyperlipidemia-continue statin
# Hypothyroidism-Synthroid
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
# Anemia-replace low normal iron and B12. Patient is aware about outpatient GI follow-up. Repeat hemoglobin stable
# DJD/OA
# Ex Smoker
# DVT prophylaxis-Eliquis restarted
# DNR
Patient's pharmacy does not carry Zyvox. Will send to [facility] in [place] has it.
Total discharge coordination time more than 30 minutes
Anticipated Discharge: Today
Subjective/Interval History
-
Date of Service: May 23, 2024
Objective Data
-
Labs:
Laboratory Results
05/23/24 05/23/24
06:07 12:20
WBC 8.8
Hgb 8.7 L 9.4 L
Hct 25.8 L 27.0 L
Plt Count 396
Sodium 132 L
Potassium 4.0
Chloride 96 L
Carbon Dioxide 30
BUN 19 H
Creatinine 0.9
Glucose 98
Calcium 9.0
Vital Signs:
Vital Signs
Temp Pulse Resp BP Pulse Ox
98 F 70 16 133/77 98
05/23/24 07:29 05/23/24 08:15 05/23/24 07:29 05/23/24 08:15 05/23/24 08:00
I&O
05/22/24 05/23/24 05/24/24
06:59 06:59 06:59
Intake Total 1730 / 1730 186 / 186
Output Total
Balance 1718 / 1718 185 / 1849
--- NOTE | 2024-05-23 13:45 | W.DS.TRANS ---
Addendum entered and electronically signed by Jessica Hernandez MD 05/23/24 15:44:
Dictation- [id number]
Original Note:
DC Summary - Polisher Balance Screwhead
-
Discharge Instructions:
Sleep Apnea Risk Low
Discharge Diagnosis/Procedures Right posterior ankle abscess, purulent
cellulitis, recurrent cellulitis, chronic venous
insufficiency status post R saphenous vein
ablation, paroxysmal atrial fibrillation,
hypertension, hyperlipidemia, hypothyroidism
Diet As tolerated,Restrict fluids to 48 oz
Activity As tolerated
Additional Activity Weight bearing as tolerated with surgical shoe
Driving Restrictions Not until seen by your Dr
Bathing Restrictions Do not get incision wet.
Other Services [facility],PT
Wound Care Change dressing 3x/week with dry gauze and gonzalo
wrap.
Instructions:
Stand-Alone Forms:
Changes to Home Medications: Yes
Discharge Medications:
DC Medications w/original date entered in [employer]
levothyroxine 125 mcg tablet 125 mcg PO DAILY Thyroid 03/27/22
vit C 250 mg-vit E 90 mg-zinc 40 mg-copper 1 la-phbfek-zkusbs capsule (PreserVision AREDS-2) 1 ea PO BID Supplement 03/27/22
losartan 100 mg tablet 100 mg PO DAILY #1 tab 07/26/22
acetaminophen 650 mg tablet,extended release 650 mg PO DAILY mild pain 05/04/24
diltiazem HCl 360 mg capsule,extended release 24 hr 360 mg PO QPM Blood Pressure 05/04/24
lovastatin 20 mg tablet 20 mg PO DAILY High Cholesterol 05/04/24
therapeutic multivitamin 1 tab PO DAILY Supplement 05/04/24
polyvinyl alcohol 1.4 % eye drops 1 drp BOTH EYES Q6HPRN PRN dry eyes 05/19/24
apixaban 5 mg tablet (Eliquis) 5 mg PO BID Blood Clot Prevention/Tx 05/20/24
cephalexin 500 mg capsule 500 mg PO QID Infection #28 caps 05/22/24
cyanocobalamin (vitamin B-12) 1,000 mcg tablet 1,000 mcg PO DAILY #30 tabs 05/22/24
ferrous sulfate 325 mg (65 mg iron) tablet (FeroSul) 325 mg PO DAILY Supplement #30 tabs 05/22/24
linezolid 600 mg tablet 600 mg PO BID #14 tabs 05/22/24
polyethylene glycol 3350 17 gram oral powder packet (HealthyLax) 17 g PO DAILY Constipation #3 ea 05/22/24
cyclobenzaprine 10 mg tablet 5 mg (1/2 x 10 mg) PO HS spasm #0 tabs 05/23/24
Home Medication Changes
New
cephalexin 500 mg capsule 500 mg PO QID Infection #28 caps 05/22/24
cyanocobalamin (vitamin B-12) 1,000 mcg tablet 1,000 mcg PO DAILY #30 tabs 05/22/24
ferrous sulfate 325 mg (65 mg iron) tablet (FeroSul) 325 mg PO DAILY Supplement #30 tabs 05/22/24
linezolid 600 mg tablet 600 mg PO BID #14 tabs 05/22/24
polyethylene glycol 3350 17 gram oral powder packet (HealthyLax) 17 g PO DAILY Constipation #3 ea 05/22/24
cyclobenzaprine 10 mg tablet 5 mg (1/2 x 10 mg) PO HS spasm #0 tabs 05/23/24
Pending Results: Yes
Additional Pending Results:
OR cultures
[2024-05-23 14:14] VITALS: BP 124/70
--- NOTE | 2024-05-23 14:25 | CM ---
Pt for discharge today
Met with pt - daughter to transport home
Follow with [facility]
Discussed IMM
Plan - home with [facility]
== END 2024-05-23 15:00 | disposition home health service (06) | DRG 501 ==
LOC: 3 WEST ACU 17:23
PROVIDERS: Nurse Practitioner; Student in an Organized Health Care Education/Training Program; ADMITTING PHYSICIAN Hospitalist; ATTENDING PHYSICIAN Hospitalist; CONSULT PHYSICIAN Student in an Organized Health Care Education/Training Program; EMERGENCY PHYSICIAN Student in an Organized Health Care Education/Training Program; FAMILY PHYSICIAN Family Medicine; OTHER PHYSICIAN Orthopaedic Surgery
PROC: 0L9 Tendons, Drainage (ICD-10-PCS; 2024-05-21)
PROC: 0JNN0ZZ Release Right Lower Leg Subcutaneous Tissue and Fascia, Open Approach (ICD-10-PCS; 2024-05-21)
DX: M65.071 Abscess of tendon sheath, right ankle and foot (principal); E22.2 Syndrome of inappropriate secretion of antidiuretic hormone; L03.115 Cellulitis of right lower limb; E03.9 Hypothyroidism, unspecified; M79.89 Other specified soft tissue disorders; I48.0 Paroxysmal atrial fibrillation; E78.00 Pure hypercholesterolemia, unspecified; I10 Essential (primary) hypertension; M19.90 Unspecified osteoarthritis, unspecified site; D50.9 Iron deficiency anemia, unspecified; I87.2 Venous insufficiency (chronic) (peripheral); I25.10 Atherosclerotic heart disease of native coronary artery without angina pectoris; Z96.653 Presence of artificial knee joint, bilateral; Z66 Do not resuscitate; Z87.891 Personal history of nicotine dependence; Z79.01 Long term (current) use of anticoagulants; Z90.49 Acquired absence of other specified parts of digestive tract; Z88.1 Allergy status to other antibiotic agents; Z88.2 Allergy status to sulfonamides; Z88.8 Allergy status to other drugs, medicaments and biological substances
CPT/HCPCS: 73701; 80048; 80053; 82607; 82728; 83036; 83540; 83550; 83605; 83930; 83935; 84300; 85014; 85018; 85025; 87040; 87070; 87075; 87205; 93005; 97162; 97166; 99285; Q9967

== ENCOUNTER → 2025-01-25 07:36 | Outpatient (REF) | payer MEDICARE, OTHER, SELFPAY | LOC: RAD 07:36 | PROVIDERS: ATTENDING PHYSICIAN Student in an Organized Health Care Education/Training Program; FAMILY PHYSICIAN Family Medicine | DX: I87.1 Compression of vein (principal) | CPT/HCPCS: 93970 ==

== ENCOUNTER → 2025-04-21 07:49 | Outpatient (REF) | payer MEDICARE, OTHER, SELFPAY | LOC: HWEVLT 07:49 | PROVIDERS: ATTENDING PHYSICIAN Radiology Vascular & Interventional Radiology | DX: I83.891 Varicose veins of right lower extremity with other complications (principal) | CPT/HCPCS: 36478; C1769 ==

== ENCOUNTER → 2025-05-06 09:14 | Outpatient (REF) | payer MEDICARE, OTHER, SELFPAY | LOC: HWEVLT 09:14 | PROVIDERS: ATTENDING PHYSICIAN Radiology Vascular & Interventional Radiology | DX: I83.891 Varicose veins of right lower extremity with other complications (principal) | CPT/HCPCS: 93971 ==

== ENCOUNTER → 2025-07-15 09:36 | Outpatient (REF) | payer MEDICARE, OTHER, SELFPAY | LOC: PAVMRI 09:36 | PROVIDERS: ATTENDING PHYSICIAN Anesthesiology; FAMILY PHYSICIAN Family Medicine | DX: M54.16 Radiculopathy, lumbar region (principal) | CPT/HCPCS: 72148 ==

== ENCOUNTER → 2025-09-15 09:00 | Outpatient (REF) | payer MEDICARE, OTHER, SELFPAY | LOC: RCS 09:00 | PROVIDERS: ATTENDING PHYSICIAN Student in an Organized Health Care Education/Training Program; FAMILY PHYSICIAN Family Medicine | DX: I34.0 Nonrheumatic mitral (valve) insufficiency (principal); I71.21 Aneurysm of the ascending aorta, without rupture | CPT/HCPCS: 93306 ==